=== PATIENT | male | born 1960 | race Caucasian/White ===

== ENCOUNTER 2017-01-20 19:32 | Inpatient (IN) | payer MEDICARE, OTHER ==
[~2017-01-20] VITALS: Ht 188 cm; Wt 57.2 kg
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
[2017-01-20] MEDS ORDERED: D5NS 1,000 ML IV SCH (19:45)
[2017-01-20 20:00] VITALS: BP 124/67
[2017-01-20] MEDS ORDERED: ZOFRAN4 M3 GT (20:07)
[2017-01-20] MEDS ORDERED: ACETAMINOPHEN325 M1 GT (20:07)
[2017-01-20] MEDS ORDERED: LORATADINE10 M2 GT (20:10)
[2017-01-20] MEDS ORDERED: MAGOX 400400 MG GT (20:10)
[2017-01-20] MEDS ORDERED: IPRATROPIU0.2 MG/1 M HHN (20:10)
[2017-01-20] MEDS ORDERED: ASCORBIC ACID500 MG GT (20:14)
[2017-01-20] MEDS ORDERED: VALPROIC ACID250 MG GT (20:14)
[2017-01-20] MEDS ORDERED: MULTIVITAMINS1 EAC2 GT (20:14)
[2017-01-20] MEDS ORDERED: QUETIAPINE FUM200 MG GT (20:16)
[2017-01-20] MEDS ORDERED: WELLBUTRIN XL150 MG GT (20:16)
[2017-01-20 20:18] LABS: BASOPHILS % (AUTO) 2.6 % (0.0-2.0); EOSINOPHILS % (AUTO) 0.4 % (0.0-3.0); LYMPHOCYTES % (AUTO) 24.7 % (20.0-45.0); MEAN CORPUSCULAR HEMOGLOBIN 33.2 PG (27.0-31.0); MEAN CORPUSCULAR HGB CONC 33.5 G/DL (32.0-36.0); MEAN CORPUSCULAR VOLUME 99 FL (80-99); MEAN PLATELET VOLUME 5.8 FL (6.5-10.1); MONOCYTES % (AUTO) 11.7 % (1.0-10.0); NEUTROPHILS % (AUTO) 60.6 % (45.0-75.0); PLATELET COUNT 449 K/UL (150-450); RED BLOOD COUNT 3.45 M/UL (4.70-6.10); RED CELL DISTRIBUTION WIDTH 12.3 % (11.6-14.8); WHITE BLOOD COUNT 6.7 K/UL (4.8-10.8)
[2017-01-20] MEDS ORDERED: DOCUSATE S50 MG/5 ML GT (21:00)
[2017-01-20] MEDS ORDERED: PRILOSEC2.5 MG GT (21:00)
[2017-01-20 21:11] LABS: ALANINE AMINOTRANSFERASE 14 U/L (3-41); ALBUMIN/GLOBULIN RATIO 0.7 (1.0-2.7); ANION GAP 14 (5-15); ASPARTATE AMINO TRANSFERASE 21 U/L (5-40); CALCIUM 9.8 mg/dL (8.6-10.2); CARBON DIOXIDE 27 mEQ/L (20-30); CHLORIDE 93 mEQ/L (98-107); CREATININE 0.7 mg/dL (0.7-1.2); GLOMERULAR FILTRATION RATE > 60 mL/min (>60); HEMOLYSIS 0; SODIUM 134 mEQ/L (135-145); TOTAL PROTEIN 8.7 g/dL (6.6-8.7)
[2017-01-20 21:21] LABS: CKMB 6.4 ng/mL (< 6.7)
[2017-01-20 21:30] VITALS: BP 117/83
[2017-01-20] MEDS ORDERED: Mylanta II UD 30ml ORAL PRN (22:45)
[2017-01-20] MEDS ORDERED: Miralax 17gm pkt ORAL PRN (22:45)
[2017-01-20] MEDS ORDERED: LORazepam Inj 2mg/ml 1ml IV PRN (22:45)
[2017-01-20] MEDS ORDERED: Zolpidem 5mg tab ORAL PRN (22:45)
[2017-01-20] MEDS ORDERED: Morphine Sulfate 2mg/ml Inj IVP PRN (22:45)
[2017-01-20] MEDS: D5NS 1,000 ML IV SCH (23:29)
[2017-01-21] VITALS: BP 109/70
[2017-01-21] MEDS ORDERED: Zolpidem 5mg tab GT PRN (03:00)
[2017-01-21] MEDS ORDERED: Miralax 17gm pkt GT PRN (03:00)
[2017-01-21 04:00] VITALS: BP 114/63
[2017-01-21] MEDS ORDERED: Mylanta II UD 30ml GT PRN (04:45)
[2017-01-21 08:00] VITALS: BP 96/54
[2017-01-21] MEDS: Valproic Acid 250mg/5ml Liquid GT SCH ×2 (08:08→20:53)
[2017-01-21] MEDS: BuPROPion XL 150mg tab ORAL SCH (08:08)
[2017-01-21] MEDS: Heparin 5000 units/ml inj SUBQ SCH ×2 (08:15→21:05)
[2017-01-21] MEDS ORDERED: BuPROPion XL 150mg tab ORAL SCH (09:00)
--- NOTE | 2017-01-21 09:08 | Diagnostic Imaging Report ---
Indication: SOB Technique: XRAY CHEST 1 V Comparison:None Findings: The heart is normal in size. There is patchy infiltrate in the right lower lung. Some linear density is also noted in the medial right lower lung. A nodular density is present over the left lung base. Pedicle screws and posterior fixation bars are present in the thoracic spine from T1-T8. The heart is normal in size. Impression: Evidence of previous surgery with hardware placement in the thoracic spine. Patchy right lower lobe infiltrate. The possibility of early pneumonia should be considered. Atelectasis or scarring in the medial right base. Nodular density over the left base. This likely represents a nipple shadow. However, repeat with nipple markers would be helpful.
[2017-01-21] MEDS: D5NS 1,000 ML IV SCH (11:12)
[2017-01-21] MEDS: Acetaminophen 650mg/20.3ml GT PRN (11:13)
[2017-01-21 11:42] VITALS: BP 105/72
[2017-01-21 11:57] LABS: BASOPHILS % (AUTO) 2.5 % (0.0-2.0); EOSINOPHILS % (AUTO) 3.1 % (0.0-3.0); LYMPHOCYTES % (AUTO) 40.5 % (20.0-45.0); MEAN CORPUSCULAR HEMOGLOBIN 34.1 PG (27.0-31.0); MEAN CORPUSCULAR HGB CONC 34.2 G/DL (32.0-36.0); MEAN CORPUSCULAR VOLUME 100 FL (80-99); MEAN PLATELET VOLUME 5.9 FL (6.5-10.1); NEUTROPHILS % (AUTO) 38.8 % (45.0-75.0); PLATELET COUNT 453 K/UL (150-450); RED BLOOD COUNT 3.44 M/UL (4.70-6.10); RED CELL DISTRIBUTION WIDTH 12.1 % (11.6-14.8); WHITE BLOOD COUNT 4.8 K/UL (4.8-10.8)
[2017-01-21 12:04] LABS: HEMOGLOBIN A1C 4.4 % (< 6.0)
[2017-01-21 12:07] LABS: ALANINE AMINOTRANSFERASE 15 U/L (3-41); ALBUMIN/GLOBULIN RATIO 0.6 (1.0-2.7); ASPARTATE AMINO TRANSFERASE 22 U/L (5-40); CALCIUM 9.9 mg/dL (8.6-10.2); CARBON DIOXIDE 30 mEQ/L (20-30); CHLORIDE 99 mEQ/L (98-107); CHOLESTEROL 146 mg/dL (< 200); CHOLESTEROL/HDL RATIO 3.7 (3.3-4.4); CREATININE 0.5 mg/dL (0.7-1.2); GLOMERULAR FILTRATION RATE > 60 mL/min (>60); HEMOLYSIS 0; LDL CHOLESTEROL (CALC.) 93 mg/dL (60-99); SODIUM 138 mEQ/L (135-145); TOTAL PROTEIN 8.6 g/dL (6.6-8.7)
[2017-01-21 12:12] LABS: ANION GAP 9 (5-15); POTASSIUM 6.1 mEQ/L (3.4-4.9)
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
[2017-01-21 15:35] VITALS: BP 105/68
[2017-01-21] MEDS ORDERED: DuoNeb 0.5-3(2.5)mg/3ml neb HHN PRN (15:45)
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
[2017-01-21] MEDS ORDERED: Bactrim DS (160mg/800mg) tab GT SCH (18:00)
[2017-01-21] MEDS ORDERED: Bactrim DS (160mg/800mg) tab ORAL SCH (18:00)
[2017-01-21] MEDS: Cefepime HCl 2 GM in D5W 110 ML IVPB SCH (18:40)
[2017-01-21] MEDS ORDERED: D5NS 1,000 ML IV SCH (19:45)
[2017-01-21 20:00] VITALS: BP 99/67
--- NOTE | 2017-01-21 20:45 | History and Physical Report ---
DATE OF ADMISSION: 01/20/2017 TIME OF EVALUATION: At 9 a.m. CONSULTANTS: 1. Gareth Martínez M.D. 2. Lety Barksdale M.D. 3. Ramon Madera M.D. 4. Merrick Tavares M.D. CHIEF COMPLAINT: Failure to thrive, weakness, and confusion. BRIEF HISTORY: This is a 56-year-old male from [facility], who presented with above-mentioned diagnoses. Currently confused in bed, refusing to answer questions. REVIEW OF SYSTEMS: Not available. PAST MEDICAL HISTORY: Include encephalopathy, weakness, and failure to thrive. PAST SURGICAL HISTORY: Unknown. MEDICATIONS: Include Seroquel, heparin, Depakene, Mylanta, Wellbutrin, Ambien, Tylenol, and morphine. ALLERGIES: Hydroxyzine. SOCIAL HISTORY: Unable to obtain secondary to the patient is non-cooperative. PHYSICAL EXAMINATION: GENERAL: Awake in bed, confused, not talking much. VITAL SIGNS: Temperature 97 degrees, pulse 81, respiration 20, and blood pressure 96/54. CARDIOVASCULAR: No murmur. LUNGS: Poor exchange. ABDOMEN: Bowel sounds positive. Nontender and nondistended. EXTREMITIES: No cyanosis, clubbing, or edema. NEUROLOGICAL: The patient moves all extremities. Does not follow commands. LABORATORY DATA: Laboratory shows hemoglobin 11.4, otherwise CBC is normal. BMP shows sodium 134, chloride 93, BUN 29, and glucose 70. ASSESSMENT: 1. Failure to thrive. 2. Confusion. 3. Encephalopathy. 4. Anemia. 5. Hyponatremia. PLAN: 1. Continue pre-medications. 2. OT, PT, and dietary evaluation. 3. CBC and BMP in the morning. 4. IV fluids. 5. Resume home medications. 6. Transfer to [facility] if cleared medically. 7. Dr. Martínez, Dr. Barksdale, Dr. Madera, Dr. Tavares, and Dr. Mac to consult. Jas Dooley D.O. DR: LAVONNE JOB#: [id number] CC:
[2017-01-21] MEDS: QUEtiapine 200mg tab GT SCH (20:54)
[2017-01-21] MEDS ORDERED: Bactrim Susp 20ml GT SCH (21:00)
[2017-01-22] VITALS: BP 106/50
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
[2017-01-22] MEDS: LORazepam Inj 2mg/ml 1ml IV PRN ×2 (03:11→11:25)
[2017-01-22 04:00] VITALS: BP 90/63
[2017-01-22] MEDS: Cefepime HCl 2 GM in D5W 110 ML IVPB SCH ×2 (05:43→17:24)
[2017-01-22 07:34] LABS: BASOPHILS % (AUTO) 2.3 % (0.0-2.0); EOSINOPHILS % (AUTO) 3.8 % (0.0-3.0); LYMPHOCYTES % (AUTO) 28.4 % (20.0-45.0); MEAN CORPUSCULAR HEMOGLOBIN 32.6 PG (27.0-31.0); MEAN CORPUSCULAR HGB CONC 33.1 G/DL (32.0-36.0); MEAN CORPUSCULAR VOLUME 99 FL (80-99); MEAN PLATELET VOLUME 5.6 FL (6.5-10.1); MONOCYTES % (AUTO) 14.2 % (1.0-10.0); NEUTROPHILS % (AUTO) 51.4 % (45.0-75.0); PLATELET COUNT 316 K/UL (150-450); RED BLOOD COUNT 3.02 M/UL (4.70-6.10); RED CELL DISTRIBUTION WIDTH 12.2 % (11.6-14.8); WHITE BLOOD COUNT 4.3 K/UL (4.8-10.8)
[2017-01-22 07:40] LABS: ANION GAP 11 (5-15); CALCIUM 8.6 mg/dL (8.6-10.2); CARBON DIOXIDE 27 mEQ/L (20-30); CHLORIDE 101 mEQ/L (98-107); CREATININE 0.5 mg/dL (0.7-1.2); GLOMERULAR FILTRATION RATE > 60 mL/min (>60); HEMOLYSIS 13; POTASSIUM 3.8 mEQ/L (3.4-4.9); SODIUM 139 mEQ/L (135-145)
[2017-01-22 08:00] VITALS: BP 95/60
--- NOTE | 2017-01-22 08:01 | General Progress Note ---
Assessment/Plan Problem List: (1) Psychiatric disorder ICD Codes: F99 - Mental disorder, not otherwise specified SNOMED: 05268985, 087646687 (2) Dysphagia ICD Codes: R13.10 - Dysphagia, unspecified SNOMED: 02018735, 156900935 (3) Dehydration ICD Codes: E86.0 - Dehydration SNOMED: 90298375 (4) Hyponatremia ICD Codes: E87.1 - Hypo-osmolality and hyponatremia SNOMED: 43495048 (5) FTT (failure to thrive) in adult ICD Codes: R62.7 - Adult failure to thrive SNOMED: 403537257 Status: progressing, tolerating diet Assessment/Plan ot pt diet psyc tx cbc bmp am psyc transfer Subjective Constitutional: Reports: weakness Allergies: Coded Allergies: HYDROXYZINE (Verified Allergy, Unknown, 01/20/17) All Systems: reviewed and negative except above Subjective confused anxious Objective Last 24 Hour Vital Signs Date Time Temp Pulse Resp B/P (MAP) Pulse Ox O2 Delivery O2 Flow Rate FiO2 01/22/17 04:00 97.1 95 22 90/63 95 Room Air 01/22/17 00:00 97.8 88 17 106/50 96 Room Air 01/21/17 20:00 97.9 87 18 99/67 97 Room Air 01/21/17 15:35 97.9 84 21 105/68 95 Room Air 01/21/17 11:42 97.5 88 20 105/72 95 Room Air Laboratory Tests 01/21/17 11:30: White Blood Count 4.8, Red Blood Count 3.44L, Hemoglobin 11.7L, Hematocrit 34.3L , Mean Corpuscular Volume 100H, Mean Corpuscular Hemoglobin 34.1H, Mean Corpuscular Hemoglobin Concent 34.2, Red Cell Distribution Width 12.1, Platelet Count 453H, Mean Platelet Volume 5.9L, Neutrophils (%) (Auto) 38.8L, Lymphocytes (%) (Auto) 40.5, Monocytes (%) (Auto) 15.0H, Eosinophils (%) (Auto) 3.1H, Basophils (%) (Auto) 2.5H, Sodium Level 138, Potassium Level 6.1#*H, Chloride Level 99, Carbon Dioxide Level 30, Anion Gap 9, Blood Urea Nitrogen 18 , Creatinine 0.5L, Estimat Glomerular Filtration Rate > 60, Glucose Level 111H, Hemoglobin A1c 4.4, Calcium Level 9.9, Total Bilirubin 0.5, Aspartate Amino Transf (AST/SGOT) 22, Alanine Aminotransferase (ALT/SGPT) 15, Alkaline Phosphatase 72, Total Protein 8.6, Albumin 3.5, Globulin 5.1, Albumin/Globulin Ratio 0.6L, Triglycerides Level 70, Cholesterol Level 146, LDL Cholesterol 93, HDL Cholesterol 39, Cholesterol/HDL Ratio 3.7, Thyroid Stimulating Hormone (TSH ) 2.870 01/21/17 13:10: Potassium Level 3.7 01/21/17 20:30: Rapid Plasma Reagin [Pending], HIV (1&2) Antibody Rapid Negative 01/22/17 06:00: White Blood Count 4.3L, Red Blood Count 3.02L, Hemoglobin 9.8L, Hematocrit 29.7L , Mean Corpuscular Volume 99, Mean Corpuscular Hemoglobin 32.6H, Mean Corpuscular Hemoglobin Concent 33.1, Red Cell Distribution Width 12.2, Platelet Count 316, Mean Platelet Volume 5.6L, Neutrophils (%) (Auto) 51.4, Lymphocytes ( %) (Auto) 28.4, Monocytes (%) (Auto) 14.2H, Eosinophils (%) (Auto) 3.8H, Basophils (%) (Auto) 2.3H, Sodium Level 139, Potassium Level 3.8, Chloride Level 101, Carbon Dioxide Level 27, Anion Gap 11, Blood Urea Nitrogen 13, Creatinine 0.5L, Estimat Glomerular Filtration Rate > 60, Glucose Level 84, Calcium Level 8.6, Phosphorus Level 3.2, Prealbumin [Pending] Height (Feet): 6 Height (Inches): 2.00 Weight (Pounds): 126 General Appearance: confused EENT: normal ENT inspection Neck: normal alignment Cardiovascular: normal peripheral pulses, normal rate, regular rhythm Respiratory/Chest: chest wall non-tender, lungs clear, normal breath sounds Abdomen: normal bowel sounds, non tender, soft Extremities: normal inspection Edema: no edema noted Arm (L), no edema noted Arm (R), no edema noted Leg (L), no edema noted Leg (R), no edema noted Pedal (L), no edema noted Pedal (R), no edema noted Generalized Neurologic: responsive, motor weakness Skin: normal pigmentation, warm/dry JOE RUIZ Jan 22, 2017 08:01
[2017-01-22] MEDS: Valproic Acid 250mg/5ml Liquid GT SCH ×2 (08:14→21:05)
[2017-01-22] MEDS: BuPROPion XL 150mg tab ORAL SCH (08:15)
[2017-01-22] MEDS: Heparin 5000 units/ml inj SUBQ SCH ×2 (08:16→21:16)
[2017-01-22] MEDS ORDERED: D5NS 1000ml IV ONE (09:09)
[2017-01-22] MEDS ORDERED: Tubing IV Secondary IV ONE (09:09)
[2017-01-22] MEDS ORDERED: Sterile Water Irrig 1000ml IRRIG ONE (09:11)
--- NOTE | 2017-01-22 11:08 | Pulmonology Progress Note ---
Assessment/Plan Assessment/Plan ASSESSMENT dehydration dysphagia, G tube anemia cachexia probably severe protein calorie malnutrition possible early PNA chronic encephalopathy PLAN OF CARE MS floor O2 prn titrate to keep sat above 92% HHN prn fup with CXR empiric abx, sputum cx if able IVF monitor renal parameters, lytes, avoid nephrotoxic strict aspiration precautions, GT feeding, monitor tolerance, site care swallow eval on Monday monitor HH, if trend down, then initiate anemia workup, currently mild dietary eval, check prealbumin DVT GI prophylaxis sitter at the bedside psych eval -as per PMD case discussed and evaluated by supervising physician Subjective Allergies: Coded Allergies: HYDROXYZINE (Verified Allergy, Unknown, 01/20/17) Subjective on RA no signs of respiratory distress, no congestion, no chest tightness no chest pain Objective Last 24 Hour Vital Signs Date Time Temp Pulse Resp B/P (MAP) Pulse Ox O2 Delivery O2 Flow Rate FiO2 01/22/17 08:00 97.5 92 20 95/60 97 Room Air 01/22/17 06:47 91 18 Room Air 01/22/17 04:00 97.1 95 22 90/63 95 Room Air 01/22/17 00:00 97.8 88 17 106/50 96 Room Air 01/21/17 20:00 97.9 87 18 99/67 97 Room Air 01/21/17 15:35 97.9 84 21 105/68 95 Room Air 01/21/17 11:42 97.5 88 20 105/72 95 Room Air Objective General Appearance: cachetic - awake, alert, anxious male in NAD , voice raspy Lines, tubes and drains: peripheral HEENT: anicteric Neck: supple Respiratory/Chest: lungs clear with moderate air entrance Cardiovascular/Chest: normal rate, regular rhythm, no JVD Abdomen: normal bowel sounds, non tender, soft Extremities: normal range of motion, non-tender, no calf tenderness Skin Exam: warm/dry, other multiple tattoos Neurologic: alert, responsive Laboratory Tests 01/21/17 11:30: White Blood Count 4.8, Red Blood Count 3.44L, Hemoglobin 11.7L, Hematocrit 34.3L , Mean Corpuscular Volume 100H, Mean Corpuscular Hemoglobin 34.1H, Mean Corpuscular Hemoglobin Concent 34.2, Red Cell Distribution Width 12.1, Platelet Count 453H, Mean Platelet Volume 5.9L, Neutrophils (%) (Auto) 38.8L, Lymphocytes (%) (Auto) 40.5, Monocytes (%) (Auto) 15.0H, Eosinophils (%) (Auto) 3.1H, Basophils (%) (Auto) 2.5H, Sodium Level 138, Potassium Level 6.1#*H, Chloride Level 99, Carbon Dioxide Level 30, Anion Gap 9, Blood Urea Nitrogen 18 , Creatinine 0.5L, Estimat Glomerular Filtration Rate > 60, Glucose Level 111H, Hemoglobin A1c 4.4, Calcium Level 9.9, Total Bilirubin 0.5, Aspartate Amino Transf (AST/SGOT) 22, Alanine Aminotransferase (ALT/SGPT) 15, Alkaline Phosphatase 72, Total Protein 8.6, Albumin 3.5, Globulin 5.1, Albumin/Globulin Ratio 0.6L, Triglycerides Level 70, Cholesterol Level 146, LDL Cholesterol 93, HDL Cholesterol 39, Cholesterol/HDL Ratio 3.7, Thyroid Stimulating Hormone (TSH ) 2.870 01/21/17 13:10: Potassium Level 3.7 01/21/17 20:30: Rapid Plasma Reagin [Pending], HIV (1&2) Antibody Rapid Negative 01/22/17 06:00: White Blood Count 4.3L, Red Blood Count 3.02L, Hemoglobin 9.8L, Hematocrit 29.7L , Mean Corpuscular Volume 99, Mean Corpuscular Hemoglobin 32.6H, Mean Corpuscular Hemoglobin Concent 33.1, Red Cell Distribution Width 12.2, Platelet Count 316, Mean Platelet Volume 5.6L, Neutrophils (%) (Auto) 51.4, Lymphocytes ( %) (Auto) 28.4, Monocytes (%) (Auto) 14.2H, Eosinophils (%) (Auto) 3.8H, Basophils (%) (Auto) 2.3H, Sodium Level 139, Potassium Level 3.8, Chloride Level 101, Carbon Dioxide Level 27, Anion Gap 11, Blood Urea Nitrogen 13, Creatinine 0.5L, Estimat Glomerular Filtration Rate > 60, Glucose Level 84, Calcium Level 8.6, Phosphorus Level 3.2, Prealbumin [Pending] Current Medications Medications (Trade) Dose Ordered Sig/Isabel Route PRN Reason Start Time Stop Time Status Last Admin Dose Admin Acetaminophen (Tylenol) 650 mg Q4H PRN GT Mild Pain/Temp > 100.5 01/21/17 03:00 02/20/17 02:59 01/21/17 11:13 Al Hydroxide/Mg Hydroxide (Mylanta II) 30 ml Q6H PRN GT dyspepsia 01/21/17 04:45 02/20/17 04:44 Albuterol/ Ipratropium (DuoNeb 0.5-3(2.5)mg/3ml) 3 ml Q4H PRN HHN shortness of breath 01/21/17 15:45 01/26/17 15:44 Bupropion HCl (Wellbutrin XL) 75 mg DAILY ORAL 01/21/17 09:00 02/20/17 08:59 01/22/17 08:15 Cefepime HCl 2 gm/ Dextrose 110 ml @ 220 mls/hr Q12HR@0600,1800 IVPB 01/21/17 18:30 01/28/17 18:29 01/22/17 05:43 Dextrose (Dextrose 50%) STAT PRN IV Hypoglycemia 01/20/17 22:45 02/19/17 22:44 Dextrose/Sodium Chloride 1,000 ml @ 50 mls/hr Q20H IV 01/20/17 23:30 02/19/17 23:29 01/21/17 11:12 Heparin Sodium (Porcine) (Heparin 5000 units/ml) 5,000 units EVERY 12 HOURS SUBQ 01/21/17 09:00 02/20/17 08:59 01/22/17 08:16 Lorazepam (Ativan 2mg/ml 1ml) 1 mg Q6H PRN IV For Anxiety 01/21/17 09:15 01/28/17 09:14 01/22/17 03:11 Olanzapine (ZyPREXA) 5 mg BID GT 01/21/17 18:00 02/20/17 17:59 01/22/17 08:14 Ondansetron HCl (Zofran) 4 mg Q6H PRN IVP Nausea & Vomiting 01/20/17 22:45 02/19/17 22:44 01/21/17 11:12 Polyethylene Glycol (Miralax) 17 gm HSPRN PRN GT Constipation 01/21/17 03:00 02/20/17 02:59 Quetiapine Fumarate (SEROquel) 200 mg BEDTIME GT 01/21/17 21:00 02/20/17 20:59 01/21/17 20:54 Ranitidine HCl (Zantac) 150 mg BEDTIME GT 01/21/17 21:00 02/20/17 20:59 01/21/17 20:54 Valproic Acid (Depakene) 250 mg EVERY 12 HOURS GT 01/21/17 09:00 02/20/17 08:59 01/22/17 08:14 Vancomycin HCl (Vanco rx to dose) 1 ea DAILY PRN MISC Per rx protocol 01/21/17 17:30 02/20/17 17:29 Vancomycin HCl 1 gm/Dextrose 250 ml @ 167.007 mls/hr Q8H IVPB 01/21/17 20:00 01/26/17 19:59 01/22/17 03:11 Zolpidem Tartrate (Ambien) 5 mg HSPRN PRN GT Insomnia 01/21/17 03:00 01/28/17 02:59 Anirudh (Andrea)Luisana NP Jan 22, 2017 11:08
--- NOTE | 2017-01-22 11:48 | Diagnostic Imaging Report ---
Indication: SOB Technique: XRAY CHEST 1 V Comparison:01/20/2017 Findings: Compared previous study there is slight increased infiltrate in the right lower lobe. The cardiomediastinal silhouette and remainder the chest is unchanged. Impression: Slight increased infiltrate in the right lower lobe. This is consistent with pneumonia.
[2017-01-22 12:00] VITALS: BP 142/66
[2017-01-22] MEDS ORDERED: guaiFENesin 100mg/5ml Liq ud GT PRN (12:00)
[2017-01-22] MEDS: D5NS 1,000 ML IV SCH (13:49)
--- NOTE | 2017-01-22 15:35 | Nephrology Progress Note ---
Assessment/Plan Problem List: (1) FTT (failure to thrive) in adult (2) Dehydration (3) PEG (percutaneous endoscopic gastrostomy) status (4) Psychiatric disorder (5) Dysphagia (6) Hyperkalemia Assessment: Resolved (7) Hyponatremia Assessment: resolved Plan Continue abx per ID Monitor lytes and correct prn Continue g-tube feeding per GI Pain management as needed DVT prophylaxis Fall precaution AM labs Subjective Constitutional: Denies: no symptoms, chills, diaphoresis, fever, malaise, weakness, other HEENT: Denies: no symptoms, eye pain, blurred vision, tearing, double vision, ear pain, ear discharge, nose pain, nose congestion, throat pain, throat swelling, mouth pain, mouth swelling, other Genitourinary: Denies: no symptoms, burning, discharge, frequency, flank pain, hematuria, incontinence, pain, urgency, other Neurologic/Psychiatric: Denies: no symptoms, anxiety, depressed, emotional problems, headache, numbness, paresthesia, pre-existing deficit, seizure, tingling, tremors, weakness, other Subjective Sitting by the bedside, in no apparent distress. Objective Objective Last 24 Hour Vital Signs Date Time Temp Pulse Resp B/P (MAP) Pulse Ox O2 Delivery O2 Flow Rate FiO2 01/22/17 12:00 97.3 93 20 142/66 96 Room Air 01/22/17 08:00 97.5 92 20 95/60 97 Room Air 01/22/17 06:47 91 18 Room Air 01/22/17 04:00 97.1 95 22 90/63 95 Room Air 01/22/17 00:00 97.8 88 17 106/50 96 Room Air 01/21/17 20:00 97.9 87 18 99/67 97 Room Air 01/21/17 15:35 97.9 84 21 105/68 95 Room Air Laboratory Tests 01/21/17 20:30: Rapid Plasma Reagin [Pending], HIV (1&2) Antibody Rapid Negative 01/22/17 06:00: White Blood Count 4.3L, Red Blood Count 3.02L, Hemoglobin 9.8L, Hematocrit 29.7L , Mean Corpuscular Volume 99, Mean Corpuscular Hemoglobin 32.6H, Mean Corpuscular Hemoglobin Concent 33.1, Red Cell Distribution Width 12.2, Platelet Count 316, Mean Platelet Volume 5.6L, Neutrophils (%) (Auto) 51.4, Lymphocytes ( %) (Auto) 28.4, Monocytes (%) (Auto) 14.2H, Eosinophils (%) (Auto) 3.8H, Basophils (%) (Auto) 2.3H, Sodium Level 139, Potassium Level 3.8, Chloride Level 101, Carbon Dioxide Level 27, Anion Gap 11, Blood Urea Nitrogen 13, Creatinine 0.5L, Estimat Glomerular Filtration Rate > 60, Glucose Level 84, Calcium Level 8.6, Phosphorus Level 3.2, Prealbumin [Pending] Height (Feet): 6 Height (Inches): 2.00 Weight (Pounds): 126 General Appearance: no apparent distress EENT: PERRL/EOMI, normal ENT inspection Neck: non-tender, normal alignment Cardiovascular: normal rate, regular rhythm Respiratory/Chest: normal breath sounds, no respiratory distress Abdomen: soft, other - PEG Extremities: non-tender, normal inspection Neurologic: alert, responsive, normal mood/affect Denisse Lam N.P. Jan 22, 2017 15:35
[2017-01-22 16:00] VITALS: BP 101/76
[2017-01-22 20:00] VITALS: BP 117/55
[2017-01-22] MEDS: DuoNeb 0.5-3(2.5)mg/3ml neb HHN PRN (20:14)
[2017-01-22] MEDS: QUEtiapine 200mg tab GT SCH (21:05)
[2017-01-22] MEDS: Acetaminophen 650mg/20.3ml GT PRN (21:18)
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
[2017-01-23] VITALS: BP 114/57
[2017-01-23 04:00] VITALS: BP 108/53
[2017-01-23] MEDS: Cefepime HCl 2 GM in D5W 110 ML IVPB SCH ×2 (05:00→18:21)
[2017-01-23 07:33] LABS: MEAN CORPUSCULAR HEMOGLOBIN 34.2 PG (27.0-31.0); MEAN CORPUSCULAR HGB CONC 34.5 G/DL (32.0-36.0); MEAN CORPUSCULAR VOLUME 99 FL (80-99); MEAN PLATELET VOLUME 5.8 FL (6.5-10.1); PLATELET COUNT 280 K/UL (150-450); RED BLOOD COUNT 2.61 M/UL (4.70-6.10); RED CELL DISTRIBUTION WIDTH 12.6 % (11.6-14.8); WHITE BLOOD COUNT 2.4 K/UL (4.8-10.8)
[2017-01-23 07:52] LABS: ANION GAP 5 (5-15); CALCIUM 8.3 mg/dL (8.6-10.2); CARBON DIOXIDE 31 mEQ/L (20-30); CHLORIDE 101 mEQ/L (98-107); CREATININE 0.4 mg/dL (0.7-1.2); GLOMERULAR FILTRATION RATE > 60 mL/min (>60); HEMOLYSIS 2; POTASSIUM 3.7 mEQ/L (3.4-4.9); SODIUM 137 mEQ/L (135-145)
[2017-01-23 08:12] VITALS: BP 98/62
--- NOTE | 2017-01-23 08:15 | Progress Note ---
DATE: 01/23/2017 SUBJECTIVE: This is a 56-year-old patient with failure to thrive, but he had some altered mental status and agitation. PLAN: to prevent any decline in his cognition and agitation. The patient was seen and assessed at the bedside. Chart was reviewed and discussed with the staff. Lety Barksdale M.D. DR: HAFSA JOB#: [id number] CC:
--- NOTE | 2017-01-23 08:15 | Consultation ---
DATE OF CONSULTATION: 01/21/2017 HISTORY OF PRESENT ILLNESS: This is a 56-year-old male patient who was admitted with diagnosis of failure to thrive and dehydration with altered mental status and confusion over at [facility] and confusion, but he also has underlying diagnosis of paranoid schizophrenia with acute exacerbation and he has been having some agitation. He has been in his room and that is why there was a consultation requested for this patient. ALLERGIES: Hydroxyzine. SOCIAL HISTORY: Financially supported by [employer] and Medicare, lives in [facility]. PSYCHOTROPIC MEDICATIONS: The patient is on Wellbutrin XL 75 mg daily and he is also on Seroquel at a dose of 200 mg at bedtime as well as Depakote 250 mg per G-tube twice a day. Even being on those medications, he still has some agitation and irritability. PSYCHIATRIC HISTORY: Schizoaffective, bipolar type, he does previous admissions. PAST MEDICAL HISTORY: This patient does have a history of failure to thrive with dehydration, status post G-tube. MENTAL STATUS EXAMINATION: This is a 56-year-old male with psychomotor retardation. Mood is irritable and agitated. Affect is guarded and restricted. Thought process is disorganized and illogical. He denies any suicidal or homicidal thoughts. Insight and judgment is poor. DIAGNOSIS: Schizoaffective, bipolar type. PLAN: My plan for this patient is I am going to add 5 mg through G-tube twice a day to reduce agitation and anxiety. Continue Seroquel 200 mg at bedtime and Depakote 250 mg per G-tube twice a day to stabilize his mood and reduce anxiety . Chart was reviewed and discussed with the staff. Patient was seen and assessed at bedside. I would like to thank Dr. Jas Dooley for this interesting consultation. Lety Barksdale M.D. DR: Abhijit JOB#: [id number] CC:
[2017-01-23 08:42] LABS: EOSINOPHILS % (MANUAL) 10 % (0-3); LYMPHOCYTES % (MANUAL) 47 % (20-45); NEUTROPHILS % (MANUAL) 28 % (45-75); TOTAL CELLS COUNTED 100
[2017-01-23 08:43] LABS: ANISOCYTOSIS 1+; BAND NEUTROPHILS % (MANUAL) 0 % (0-8); BASOPHILS % (MANUAL) 0 % (0-2); MACROCYTES 1+; PLATELET ESTIMATE ADEQUATE; PLATELET MORPHOLOGY NORMAL
[2017-01-23 08:44] LABS: HYPOCHROMASIA 1+; OVALOCYTES 1+
[2017-01-23] MEDS: BuPROPion XL 150mg tab ORAL SCH (09:20)
[2017-01-23] MEDS: Heparin 5000 units/ml inj SUBQ SCH ×2 (09:21→20:53)
[2017-01-23] MEDS: Valproic Acid 250mg/5ml Liquid GT SCH ×2 (09:21→20:52)
[2017-01-23] MEDS: DuoNeb 0.5-3(2.5)mg/3ml neb HHN PRN ×2 (10:14→15:24)
[2017-01-23 12:03] VITALS: BP 108/64
[2017-01-23] MEDS: D5NS 1,000 ML IV SCH (12:18)
[2017-01-23] MEDS: LORazepam Inj 2mg/ml 1ml IV PRN (12:30)
--- NOTE | 2017-01-23 13:33 | General Progress Note ---
Assessment/Plan Problem List: (1) Psychiatric disorder ICD Codes: F99 - Mental disorder, not otherwise specified SNOMED: 77361616, 492338202 (2) Dysphagia ICD Codes: R13.10 - Dysphagia, unspecified SNOMED: 97515779, 499984373 (3) Dehydration ICD Codes: E86.0 - Dehydration SNOMED: 49960374 (4) Hyponatremia ICD Codes: E87.1 - Hypo-osmolality and hyponatremia SNOMED: 91106048 (5) FTT (failure to thrive) in adult ICD Codes: R62.7 - Adult failure to thrive SNOMED: 735241662 Status: stable, progressing, tolerating diet Assessment/Plan ot pt diet psyc tx cbc bmp am dc to snf Subjective Constitutional: Reports: weakness Allergies: Coded Allergies: HYDROXYZINE (Verified Allergy, Unknown, 01/20/17) All Systems: reviewed and negative except above Subjective confused anxious Objective Last 24 Hour Vital Signs Date Time Temp Pulse Resp B/P (MAP) Pulse Ox O2 Delivery O2 Flow Rate FiO2 01/23/17 12:03 97.0 89 20 108/64 95 Room Air 01/23/17 10:16 88 18 99 Room Air 01/23/17 10:16 90 18 99 Room Air 01/23/17 08:12 97.7 97 18 98/62 95 Room Air 01/23/17 07:40 88 18 Room Air 01/23/17 04:00 97.2 81 18 108/53 97 Room Air 01/23/17 00:00 97.1 81 18 114/57 97 Room Air 01/22/17 22:00 96.4 01/22/17 20:25 86 18 99 Room Air 01/22/17 20:15 83 18 99 Room Air 01/22/17 20:00 96.4 79 18 117/55 99 Room Air 01/22/17 19:44 89 18 Room Air 01/22/17 16:00 98.9 90 15 101/76 98 Room Air Intake and Output 01/23/17 01/24/17 19:00 07:00 Output Total 300 ml Balance -300 ml Output Urine Total 300 ml # Voids 2 # Bowel Movements 2 Laboratory Tests 01/22/17 19:30: Vancomycin Level Trough 20.0H 01/23/17 06:25: White Blood Count 2.4L, Red Blood Count 2.61L, Hemoglobin 8.9L, Hematocrit 25.9L , Mean Corpuscular Volume 99, Mean Corpuscular Hemoglobin 34.2H, Mean Corpuscular Hemoglobin Concent 34.5, Red Cell Distribution Width 12.6, Platelet Count 280, Mean Platelet Volume 5.8L, Neutrophils (%) (Auto) , Lymphocytes (%) ( Auto) , Monocytes (%) (Auto) , Eosinophils (%) (Auto) , Basophils (%) (Auto) , Differential Total Cells Counted 100, Neutrophils % (Manual) 28L, Lymphocytes % (Manual) 47H, Monocytes % (Manual) 15H, Eosinophils % (Manual) 10H, Basophils % (Manual) 0, Band Neutrophils 0, Platelet Estimate Adequate, Platelet Morphology Normal, Hypochromasia 1+, Anisocytosis 1+, Microcytosis , Macrocytosis 1+, Ovalocytes 1+, Sodium Level 137, Potassium Level 3.7, Chloride Level 101, Carbon Dioxide Level 31H, Anion Gap 5, Blood Urea Nitrogen 9, Creatinine 0.4L, Estimat Glomerular Filtration Rate > 60, Glucose Level 132H, Calcium Level 8.3L Height (Feet): 6 Height (Inches): 2.00 Weight (Pounds): 126 General Appearance: lethargic EENT: normal ENT inspection Neck: normal alignment Cardiovascular: normal peripheral pulses, normal rate, regular rhythm Respiratory/Chest: chest wall non-tender, lungs clear, normal breath sounds Abdomen: normal bowel sounds, non tender, soft Extremities: normal inspection Edema: no edema noted Arm (L), no edema noted Arm (R), no edema noted Leg (L), no edema noted Leg (R), no edema noted Pedal (L), no edema noted Pedal (R), no edema noted Generalized Neurologic: motor weakness Skin: normal pigmentation, warm/dry JOE RUIZ Jan 23, 2017 13:33
--- NOTE | 2017-01-23 14:30 | Wound Care Consultation ---
Wound Assessment Wound Assessment #1: Wound Number: 1 Wound Present on Admission: Yes New Wound: No Status Change of Wound: No Wound Location Body Site: perineal area Wound Type: chemical burn Cole Test: Does not Cole Percent of Wound [place]/Red: 100 - scattered Wound Drainage Amount: None Wound Drainage Odor: None/Absent Tissue Surrounding Wound: Erythemic Wound General Appearance: Reddened, Open to air Wound Assessment #2: Wound Number: 2 Wound Present on Admission: Yes New Wound: No Status Change of Wound: No Wound Location Body Site: other - gtube site Wound Type: chemical burn - with erosion Cole Test: Does not Cole Wound Thickness: Partial Thickness Percent of Wound [place]/Red: 100 - pink color Wound Drainage Amount: Moderate Tissue Surrounding Wound: Erythemic - keep area clean and dry. Wound General Appearance: Reddened Wound Comment #1 perineal area chemical burn. #2 gtube site chemical burn . #3 right lower abd s/p surgical incision , noted site intact, one steri strip intact ,- follow up with MD regarding surgical incision treatment. keep area clean and dry. Recommendation. -local wound care as ordered. -Keep clean and dry. -Keep perineal , gtube site clean and dry. -Turn and reposition. -Optimize nutrition. -Assess and notify MD for any changes of condition to skin. ANDRÉS TAYLOR Jan 23, 2017 14:30
--- NOTE | 2017-01-23 14:37 | Pulmonology Progress Note ---
Assessment/Plan Problems: (1) Dehydration (2) PEG (percutaneous endoscopic gastrostomy) status (3) FTT (failure to thrive) in adult (4) Dysphagia Assessment/Plan tolerating feeding check electrolytes symptomatic treatment IV fluids check electrolytes. Subjective ROS Limited/Unobtainable: No Constitutional: Reports: no symptoms HEENT: Repors: no symptoms Respiratory: Reports: no symptoms Allergies: Coded Allergies: HYDROXYZINE (Verified Allergy, Unknown, 01/20/17) Objective Last 24 Hour Vital Signs Date Time Temp Pulse Resp B/P (MAP) Pulse Ox O2 Delivery O2 Flow Rate FiO2 01/23/17 12:03 97.0 89 20 108/64 95 Room Air 01/23/17 10:16 88 18 99 Room Air 01/23/17 10:16 90 18 99 Room Air 01/23/17 08:12 97.7 97 18 98/62 95 Room Air 01/23/17 07:40 88 18 Room Air 01/23/17 04:00 97.2 81 18 108/53 97 Room Air 01/23/17 00:00 97.1 81 18 114/57 97 Room Air 01/22/17 22:00 96.4 01/22/17 20:25 86 18 99 Room Air 01/22/17 20:15 83 18 99 Room Air 01/22/17 20:00 96.4 79 18 117/55 99 Room Air 01/22/17 19:44 89 18 Room Air 01/22/17 16:00 98.9 90 15 101/76 98 Room Air Intake and Output 01/23/17 01/24/17 19:00 07:00 Output Total 300 ml Balance -300 ml Output Urine Total 300 ml # Voids 2 # Bowel Movements 2 General Appearance: WD/WN HEENT: normocephalic, atraumatic Respiratory/Chest: chest wall non-tender, lungs clear Cardiovascular: normal peripheral pulses, regular rhythm Abdomen: normal bowel sounds, soft, non tender Genitourinary: normal external genitalia Extremities: no cyanosis Skin: no rash, no lesions Microbiology Date/Time Source Procedure Growth Status 01/21/17 20:40 Blood Blood Culture - Preliminary NO GROWTH AFTER 24 HOURS Resulted 01/21/17 20:30 Blood Blood Culture - Preliminary NO GROWTH AFTER 24 HOURS Resulted 01/21/17 16:40 Sputum Expectorated Gram Stain - Final Resulted 01/21/17 16:40 Sputum Expectorated Sputum Culture - Preliminary Resulted 01/20/17 21:45 Nasal Nares MRSA Culture - Final NO METHICILLIN RESISTANT STAPH AUREUS... Complete 01/20/17 21:45 Rectum VRE Culture - Final Enterococcus Faecalis - Vre Complete Laboratory Tests 01/22/17 19:30: Vancomycin Level Trough 20.0H 01/23/17 06:25: White Blood Count 2.4L, Red Blood Count 2.61L, Hemoglobin 8.9L, Hematocrit 25.9L , Mean Corpuscular Volume 99, Mean Corpuscular Hemoglobin 34.2H, Mean Corpuscular Hemoglobin Concent 34.5, Red Cell Distribution Width 12.6, Platelet Count 280, Mean Platelet Volume 5.8L, Neutrophils (%) (Auto) , Lymphocytes (%) ( Auto) , Monocytes (%) (Auto) , Eosinophils (%) (Auto) , Basophils (%) (Auto) , Differential Total Cells Counted 100, Neutrophils % (Manual) 28L, Lymphocytes % (Manual) 47H, Monocytes % (Manual) 15H, Eosinophils % (Manual) 10H, Basophils % (Manual) 0, Band Neutrophils 0, Platelet Estimate Adequate, Platelet Morphology Normal, Hypochromasia 1+, Anisocytosis 1+, Microcytosis , Macrocytosis 1+, Ovalocytes 1+, Sodium Level 137, Potassium Level 3.7, Chloride Level 101, Carbon Dioxide Level 31H, Anion Gap 5, Blood Urea Nitrogen 9, Creatinine 0.4L, Estimat Glomerular Filtration Rate > 60, Glucose Level 132H, Calcium Level 8.3L Current Medications Medications (Trade) Dose Ordered Sig/Isabel Route PRN Reason Start Time Stop Time Status Last Admin Dose Admin Acetaminophen (Tylenol) 650 mg Q4H PRN GT Mild Pain/Temp > 100.5 01/21/17 03:00 02/20/17 02:59 01/22/17 21:18 Al Hydroxide/Mg Hydroxide (Mylanta II) 30 ml Q6H PRN GT dyspepsia 01/21/17 04:45 02/20/17 04:44 Albuterol/ Ipratropium (DuoNeb 0.5-3(2.5)mg/3ml) 3 ml Q4H PRN HHN Shortness of Breath 01/22/17 12:00 01/27/17 11:59 01/23/17 10:14 Bupropion HCl (Wellbutrin XL) 75 mg DAILY ORAL 01/21/17 09:00 02/20/17 08:59 01/23/17 09:20 Cefepime HCl 2 gm/ Dextrose 110 ml @ 220 mls/hr Q12HR@0600,1800 IVPB 01/21/17 18:30 01/28/17 18:29 01/23/17 05:00 Dextrose (Dextrose 50%) STAT PRN IV Hypoglycemia 01/20/17 22:45 02/19/17 22:44 Dextrose/Sodium Chloride 1,000 ml @ 50 mls/hr Q20H IV 01/20/17 23:30 02/19/17 23:29 01/23/17 12:18 Guaifenesin (Robitussin) 100 mg Q4H PRN GT For Cough 01/22/17 12:00 02/21/17 11:59 01/22/17 12:10 Heparin Sodium (Porcine) (Heparin 5000 units/ml) 5,000 units EVERY 12 HOURS SUBQ 01/21/17 09:00 02/20/17 08:59 01/23/17 09:21 Lorazepam (Ativan 2mg/ml 1ml) 1 mg Q6H PRN IV For Anxiety 01/21/17 09:15 01/28/17 09:14 01/23/17 12:30 Olanzapine (ZyPREXA) 5 mg BID GT 01/21/17 18:00 02/20/17 17:59 01/23/17 09:20 Ondansetron HCl (Zofran) 4 mg Q6H PRN IVP Nausea & Vomiting 01/20/17 22:45 02/19/17 22:44 01/21/17 11:12 Polyethylene Glycol (Miralax) 17 gm HSPRN PRN GT Constipation 01/21/17 03:00 02/20/17 02:59 Quetiapine Fumarate (SEROquel) 200 mg BEDTIME GT 01/21/17 21:00 02/20/17 20:59 01/22/17 21:05 Ranitidine HCl (Zantac) 150 mg BEDTIME GT 01/21/17 21:00 02/20/17 20:59 01/22/17 21:05 Valproic Acid (Depakene) 250 mg EVERY 12 HOURS GT 01/21/17 09:00 02/20/17 08:59 01/23/17 09:21 Vancomycin HCl (Vanco rx to dose) 1 ea DAILY PRN MISC Per rx protocol 01/21/17 17:30 02/20/17 17:29 Vancomycin HCl 1 gm/Dextrose 250 ml @ 167.007 mls/hr Q12HR@0200,1400 IVPB 01/23/17 02:00 01/28/17 01:59 01/23/17 14:22 Zolpidem Tartrate (Ambien) 5 mg HSPRN PRN GT Insomnia 01/21/17 03:00 01/28/17 02:59 RENÉ KAMINSKI Jan 23, 2017 14:37
[2017-01-23 16:00] VITALS: BP 104/79
--- NOTE | 2017-01-23 17:36 | Infectious Diseases Prog Note ---
Assessment/Plan Problems: (1) RLL pneumonia Assessment & Plan: await blood culture and sputum culture, continue cefepime and vancomycin empirically for 7 days (2) G-tube site cellulitis Assessment & Plan: already on vancomycin and cefepime, continue local care (3) Respiratory failure after trauma Assessment & Plan: S/P trach removal, stable, monitor CXR, pulmonary is following (4) Dehydration Assessment & Plan: continue IVF for hydration, monitor lytes (5) FTT (failure to thrive) in adult Assessment & Plan: screening for HIV is negative , screening for syphilis is pending, need TSH checked Subjective Constitutional: Reports: no symptoms HEENT: Reports: no symptoms Respiratory: Reports: no symptoms Breasts: Reports: no symptoms Cardiovascular: Reports: no symptoms Gastrointestinal/Abdominal: Reports: no symptoms Genitourinary: Reports: no symptoms Neurologic: Reports: no symptoms Psychiatric: Reports: no symptoms Skin: Reports: no symptoms Endocrine: Reports: no symptoms Hematologic: Reports: no symptoms Allergies: Coded Allergies: HYDROXYZINE (Verified Allergy, Unknown, 01/20/17) Objective Vital Signs Last 24 Hour Vital Signs Date Time Temp Pulse Resp B/P (MAP) Pulse Ox O2 Delivery O2 Flow Rate FiO2 01/23/17 16:00 98.3 92 21 104/79 97 Room Air 01/23/17 15:26 79 18 99 Room Air 01/23/17 15:26 85 18 99 Room Air 01/23/17 12:03 97.0 89 20 108/64 95 Room Air 01/23/17 10:16 88 18 99 Room Air 01/23/17 10:16 90 18 99 Room Air 01/23/17 08:12 97.7 97 18 98/62 95 Room Air 01/23/17 07:40 88 18 Room Air 01/23/17 04:00 97.2 81 18 108/53 97 Room Air 01/23/17 00:00 97.1 81 18 114/57 97 Room Air 01/22/17 22:00 96.4 01/22/17 20:25 86 18 99 Room Air 01/22/17 20:15 83 18 99 Room Air 01/22/17 20:00 96.4 79 18 117/55 99 Room Air 01/22/17 19:44 89 18 Room Air Height (Feet): 6 Height (Inches): 2.00 Weight (Pounds): 126 General Appearance: WD/WN, no acute distress HEENT: normocephalic, atraumatic, anicteric, mucous membranes moist, PERRL, EOMI, pharynx normal, supple Respiratory/Chest: chest wall non-tender, normal breath sounds, no respiratory distress, no accessory muscle use, decreased breath sounds, crackles/rales Cardiovascular: normal peripheral pulses, normal rate, regular rhythm, no gallop/murmur, no JVD Abdomen: normal bowel sounds, soft, non tender, no organomegaly, non distended , no mass Extremities: no cyanosis, no clubbing Skin: no rash, no lesions Neurologic/Psychiatric: alert, responsive Microbiology Date/Time Source Procedure Growth Status 01/21/17 20:40 Blood Blood Culture - Preliminary NO GROWTH AFTER 24 HOURS Resulted 01/21/17 20:30 Blood Blood Culture - Preliminary NO GROWTH AFTER 24 HOURS Resulted 01/21/17 16:40 Sputum Expectorated Gram Stain - Final Resulted 01/21/17 16:40 Sputum Expectorated Sputum Culture - Preliminary Resulted 01/20/17 21:45 Nasal Nares MRSA Culture - Final NO METHICILLIN RESISTANT STAPH AUREUS... Complete 01/20/17 21:45 Rectum VRE Culture - Final Enterococcus Faecalis - Vre Complete Laboratory Tests Test 01/22/17 19:30 01/23/17 06:25 Vancomycin Level Trough 20.0 ug/mL (5.0-12.0) H White Blood Count 2.4 K/UL (4.8-10.8) L Red Blood Count 2.61 M/UL (4.70-6.10) L Hemoglobin 8.9 G/DL (14.2-18.0) L Hematocrit 25.9 % (42.0-52.0) L Mean Corpuscular Volume 99 FL (80-99) Mean Corpuscular Hemoglobin 34.2 PG (27.0-31.0) H Mean Corpuscular Hemoglobin Concent 34.5 G/DL (32.0-36.0) Red Cell Distribution Width 12.6 % (11.6-14.8) Platelet Count 280 K/UL (150-450) Mean Platelet Volume 5.8 FL (6.5-10.1) L Neutrophils (%) (Auto) % (45.0-75.0) Lymphocytes (%) (Auto) % (20.0-45.0) Monocytes (%) (Auto) % (1.0-10.0) Eosinophils (%) (Auto) % (0.0-3.0) Basophils (%) (Auto) % (0.0-2.0) Differential Total Cells Counted 100 Neutrophils % (Manual) 28 % (45-75) L Lymphocytes % (Manual) 47 % (20-45) H Monocytes % (Manual) 15 % (1-10) H Eosinophils % (Manual) 10 % (0-3) H Basophils % (Manual) 0 % (0-2) Band Neutrophils 0 % (0-8) Platelet Estimate Adequate Platelet Morphology Normal Hypochromasia 1+ Anisocytosis 1+ Microcytosis Macrocytosis 1+ Ovalocytes 1+ Sodium Level 137 mEQ/L (135-145) Potassium Level 3.7 mEQ/L (3.4-4.9) Chloride Level 101 mEQ/L (98-107) Carbon Dioxide Level 31 mEQ/L (20-30) H Anion Gap 5 (5-15) Blood Urea Nitrogen 9 mg/dL (7-23) Creatinine 0.4 mg/dL (0.7-1.2) L Estimat Glomerular Filtration Rate > 60 mL/min (>60) Glucose Level 132 mg/dL (74-106) H Calcium Level 8.3 mg/dL (8.6-10.2) L Current Medications Medications (Trade) Dose Ordered Sig/Isabel Route PRN Reason Start Time Stop Time Status Last Admin Dose Admin Acetaminophen (Tylenol) 650 mg Q4H PRN GT Mild Pain/Temp > 100.5 01/21/17 03:00 02/20/17 02:59 01/22/17 21:18 Al Hydroxide/Mg Hydroxide (Mylanta II) 30 ml Q6H PRN GT dyspepsia 01/21/17 04:45 02/20/17 04:44 Albuterol/ Ipratropium (DuoNeb 0.5-3(2.5)mg/3ml) 3 ml Q4H PRN HHN Shortness of Breath 01/22/17 12:00 01/27/17 11:59 01/23/17 15:24 Bupropion HCl (Wellbutrin XL) 75 mg DAILY ORAL 01/21/17 09:00 02/20/17 08:59 01/23/17 09:20 Cefepime HCl 2 gm/ Dextrose 110 ml @ 220 mls/hr Q12HR@0600,1800 IVPB 01/21/17 18:30 01/28/17 18:29 01/23/17 05:00 Dextrose (Dextrose 50%) STAT PRN IV Hypoglycemia 01/20/17 22:45 02/19/17 22:44 Dextrose/Sodium Chloride 1,000 ml @ 50 mls/hr Q20H IV 01/20/17 23:30 02/19/17 23:29 01/23/17 12:18 Guaifenesin (Robitussin) 100 mg Q4H PRN GT For Cough 01/22/17 12:00 02/21/17 11:59 01/22/17 12:10 Heparin Sodium (Porcine) (Heparin 5000 units/ml) 5,000 units EVERY 12 HOURS SUBQ 01/21/17 09:00 02/20/17 08:59 01/23/17 09:21 Lorazepam (Ativan 2mg/ml 1ml) 1 mg Q6H PRN IV For Anxiety 01/21/17 09:15 01/28/17 09:14 01/23/17 12:30 Olanzapine (ZyPREXA) 5 mg BID GT 01/21/17 18:00 02/20/17 17:59 01/23/17 09:20 Ondansetron HCl (Zofran) 4 mg Q6H PRN IVP Nausea & Vomiting 01/20/17 22:45 02/19/17 22:44 01/21/17 11:12 Polyethylene Glycol (Miralax) 17 gm HSPRN PRN GT Constipation 01/21/17 03:00 02/20/17 02:59 Quetiapine Fumarate (SEROquel) 200 mg BEDTIME GT 01/21/17 21:00 02/20/17 20:59 01/22/17 21:05 Ranitidine HCl (Zantac) 150 mg BEDTIME GT 01/21/17 21:00 02/20/17 20:59 01/22/17 21:05 Valproic Acid (Depakene) 250 mg EVERY 12 HOURS GT 01/21/17 09:00 02/20/17 08:59 01/23/17 09:21 Vancomycin HCl (Vanco rx to dose) 1 ea DAILY PRN MISC Per rx protocol 01/21/17 17:30 02/20/17 17:29 Vancomycin HCl 1 gm/Dextrose 250 ml @ 167.007 mls/hr Q12HR@0200,1400 IVPB 01/23/17 02:00 01/28/17 01:59 01/23/17 14:22 Zolpidem Tartrate (Ambien) 5 mg HSPRN PRN GT Insomnia 01/21/17 03:00 01/28/17 02:59 Sehree Barrios M.D. Jan 23, 2017 17:35
--- NOTE | 2017-01-23 18:17 | Nephrology Progress Note ---
Assessment/Plan Problem List: (1) FTT (failure to thrive) in adult (2) Dehydration (3) PEG (percutaneous endoscopic gastrostomy) status (4) Psychiatric disorder (5) Dysphagia (6) Hyperkalemia Assessment: Resolved (7) Hyponatremia Assessment: resolved Plan Continue abx per ID Monitor lytes and correct prn Continue g-tube feeding per GI Pain management as needed DVT prophylaxis Fall precaution AM labs Subjective Constitutional: Denies: no symptoms, chills, diaphoresis, fever, malaise, weakness, other HEENT: Denies: no symptoms, eye pain, blurred vision, tearing, double vision, ear pain, ear discharge, nose pain, nose congestion, throat pain, throat swelling, mouth pain, mouth swelling, other Genitourinary: Denies: no symptoms, burning, discharge, frequency, flank pain, hematuria, incontinence, pain, urgency, other Neurologic/Psychiatric: Denies: no symptoms, anxiety, depressed, emotional problems, headache, numbness, paresthesia, pre-existing deficit, seizure, tingling, tremors, weakness, other Subjective Sitting by the bedside, pt is in no apparent distress. Objective Objective Last 24 Hour Vital Signs Date Time Temp Pulse Resp B/P (MAP) Pulse Ox O2 Delivery O2 Flow Rate FiO2 01/23/17 16:00 98.3 92 21 104/79 97 Room Air 01/23/17 15:26 79 18 99 Room Air 01/23/17 15:26 85 18 99 Room Air 01/23/17 12:03 97.0 89 20 108/64 95 Room Air 01/23/17 10:16 88 18 99 Room Air 01/23/17 10:16 90 18 99 Room Air 01/23/17 08:12 97.7 97 18 98/62 95 Room Air 01/23/17 07:40 88 18 Room Air 01/23/17 04:00 97.2 81 18 108/53 97 Room Air 01/23/17 00:00 97.1 81 18 114/57 97 Room Air 01/22/17 22:00 96.4 01/22/17 20:25 86 18 99 Room Air 01/22/17 20:15 83 18 99 Room Air 01/22/17 20:00 96.4 79 18 117/55 99 Room Air 01/22/17 19:44 89 18 Room Air Intake and Output 01/23/17 01/24/17 19:00 07:00 Output Total 300 ml Balance -300 ml Output Urine Total 300 ml # Voids 2 # Bowel Movements 2 Laboratory Tests 01/22/17 19:30: Vancomycin Level Trough 20.0H 01/23/17 06:25: White Blood Count 2.4L, Red Blood Count 2.61L, Hemoglobin 8.9L, Hematocrit 25.9L , Mean Corpuscular Volume 99, Mean Corpuscular Hemoglobin 34.2H, Mean Corpuscular Hemoglobin Concent 34.5, Red Cell Distribution Width 12.6, Platelet Count 280, Mean Platelet Volume 5.8L, Neutrophils (%) (Auto) , Lymphocytes (%) ( Auto) , Monocytes (%) (Auto) , Eosinophils (%) (Auto) , Basophils (%) (Auto) , Differential Total Cells Counted 100, Neutrophils % (Manual) 28L, Lymphocytes % (Manual) 47H, Monocytes % (Manual) 15H, Eosinophils % (Manual) 10H, Basophils % (Manual) 0, Band Neutrophils 0, Platelet Estimate Adequate, Platelet Morphology Normal, Hypochromasia 1+, Anisocytosis 1+, Microcytosis , Macrocytosis 1+, Ovalocytes 1+, Sodium Level 137, Potassium Level 3.7, Chloride Level 101, Carbon Dioxide Level 31H, Anion Gap 5, Blood Urea Nitrogen 9, Creatinine 0.4L, Estimat Glomerular Filtration Rate > 60, Glucose Level 132H, Calcium Level 8.3L Height (Feet): 6 Height (Inches): 2.00 Weight (Pounds): 126 General Appearance: no apparent distress Neck: non-tender, normal alignment Cardiovascular: normal rate, regular rhythm Respiratory/Chest: no respiratory distress Abdomen: non tender, soft, other - PEG tube noted Extremities: non-tender, normal inspection Neurologic: alert, responsive, normal mood/affect Denisse Lam N.P. Jan 23, 2017 18:17
--- NOTE | 2017-01-23 18:44 | Cardiology Report ---
APPROVED REPORT EKG Measurement Heart [id number] Normal sinus rhythm Normal ECG
[2017-01-23 20:25] VITALS: BP 106/74
[2017-01-23] MEDS: QUEtiapine 200mg tab GT SCH (20:52)
[2017-01-24 00:09] VITALS: BP 111/74
[2017-01-24 04:00] VITALS: BP 104/58
[2017-01-24] MEDS: Cefepime HCl 2 GM in D5W 110 ML IVPB SCH ×2 (05:39→17:24)
[2017-01-24 08:02] VITALS: BP 104/69
--- NOTE | 2017-01-24 08:16 | Consultation ---
DATE OF CONSULTATION: 01/21/2017 PSYCHOTHERAPY CONSULTATION PROGRESS NOTE CONSULTING PHYSICIAN: Michelle Mortensen M.D. TREATING ATTENDING PHYSICIAN: Jas Dooley D.O. History Of Present Illness: The patient is a 56-year-old male patient. The patient has a history of paranoid schizophrenia. The patient was admitted to the hospital due to confusion, altered mental status, weakness, fatigue, and failure to thrive. The patient is from [facility]. The patient states he suddenly had anxiety and agitation. . The patient denies suicidal or homicidal thoughts of ideation . Upon assessment, confused and disorganized. The patient has . Past Medical History: Includes history of weakness, encephalopathy, and failure to thrive. ALLERGIES: The patient has allergy to hydroxyzine. Substance Abuse History: There is no indication of alcohol use, illicit drug abuse, and smoking cigarettes. Social History: The patient is a 56-year-old male patient from nursing facility. Financially sustained through Medicare and [employer]. Mental Status Examination: The patient is alert and oriented x2, to person and place. Mood is depressed. Affect is blunted. Thought process is disorganized. The patient has poor attention and concentration. Poor insight, judgment, and impulse control. DIAGNOSES: AXIS I Schizoaffective disorder, bipolar type. AXIS II Deferred. AXIS III Per History and Physical. Plan: This clinician has assessed the patient. Provided the patient supportive psychotherapy, reality orientation, and coping skills. Encouraging the patient to participate in treatment milieu. Continue with medication management and behavioral management. This clinician has reviewed the patient's chart and discussed the treatment with nursing staff. Michelle Mortensen PsyD. DR: April JOB#: [id number] CC:
[2017-01-24] MEDS ORDERED: D5NS 1000ml IV ONE (09:02)
[2017-01-24] MEDS ORDERED: Tubing IV Secondary IV ONE (09:02)
[2017-01-24] MEDS: D5NS 1,000 ML IV SCH (09:34)
[2017-01-24] MEDS: Heparin 5000 units/ml inj SUBQ SCH ×2 (09:35→20:29)
[2017-01-24] MEDS: BuPROPion XL 150mg tab ORAL SCH (09:35)
[2017-01-24] MEDS: Valproic Acid 250mg/5ml Liquid GT SCH ×2 (09:36→20:27)
[2017-01-24] MEDS: DuoNeb 0.5-3(2.5)mg/3ml neb HHN PRN (10:08)
[2017-01-24 11:51] VITALS: BP 115/61
--- NOTE | 2017-01-24 14:21 | General Progress Note ---
Assessment/Plan Problem List: (1) Psychiatric disorder ICD Codes: F99 - Mental disorder, not otherwise specified SNOMED: 98712511, 154518744 (2) Dysphagia ICD Codes: R13.10 - Dysphagia, unspecified SNOMED: 09276713, 281788762 (3) Dehydration ICD Codes: E86.0 - Dehydration SNOMED: 97737620 (4) Hyponatremia ICD Codes: E87.1 - Hypo-osmolality and hyponatremia SNOMED: 64430710 (5) FTT (failure to thrive) in adult ICD Codes: R62.7 - Adult failure to thrive SNOMED: 394700772 Status: stable, progressing, tolerating diet Assessment/Plan ot pt diet psyc tx cbc bmp am dc to snf Subjective Constitutional: Reports: weakness Allergies: Coded Allergies: HYDROXYZINE (Verified Allergy, Unknown, 01/20/17) All Systems: reviewed and negative except above Subjective confused anxious Objective Last 24 Hour Vital Signs Date Time Temp Pulse Resp B/P (MAP) Pulse Ox O2 Delivery O2 Flow Rate FiO2 01/24/17 11:51 97.4 75 21 115/61 97 Room Air 01/24/17 10:17 74 18 99 Room Air 01/24/17 10:05 69 18 97 Room Air 01/24/17 08:02 97.5 69 21 104/69 97 Room Air 01/24/17 07:22 69 16 Room Air 01/24/17 04:00 98.3 88 21 104/58 92 Room Air 01/24/17 00:09 97.9 84 21 111/74 97 Room Air 01/23/17 20:30 85 16 Room Air 01/23/17 20:25 97.6 85 20 106/74 97 Room Air 01/23/17 16:00 98.3 92 21 104/79 97 Room Air 01/23/17 15:26 79 18 99 Room Air 01/23/17 15:26 85 18 99 Room Air Intake and Output 01/24/17 01/25/17 19:00 07:00 # Voids 1 Height (Feet): 6 Height (Inches): 2.00 Weight (Pounds): 126 General Appearance: lethargic EENT: normal ENT inspection Neck: normal alignment Cardiovascular: normal peripheral pulses, normal rate, regular rhythm Respiratory/Chest: chest wall non-tender, lungs clear, normal breath sounds Abdomen: normal bowel sounds, non tender, soft Extremities: normal inspection Edema: no edema noted Arm (L), no edema noted Arm (R), no edema noted Leg (L), no edema noted Leg (R), no edema noted Pedal (L), no edema noted Pedal (R), no edema noted Generalized Neurologic: motor weakness Skin: normal pigmentation, warm/dry JOE RUIZ Jan 24, 2017 14:21
--- NOTE | 2017-01-24 15:54 | Pulmonology Progress Note ---
Assessment/Plan Problems: (1) Dehydration (2) PEG (percutaneous endoscopic gastrostomy) status (3) FTT (failure to thrive) in adult (4) Dysphagia Assessment/Plan tolerating feeding check electrolytes symptomatic treatment IV fluids check electrolytes. cxr reviewed sputum cultures pending dvt prophylaxis Subjective ROS Limited/Unobtainable: No Constitutional: Reports: no symptoms HEENT: Repors: no symptoms Respiratory: Reports: no symptoms Allergies: Coded Allergies: HYDROXYZINE (Verified Allergy, Unknown, 01/20/17) Objective Last 24 Hour Vital Signs Date Time Temp Pulse Resp B/P (MAP) Pulse Ox O2 Delivery O2 Flow Rate FiO2 01/24/17 11:51 97.4 75 21 115/61 97 Room Air 01/24/17 10:17 74 18 99 Room Air 01/24/17 10:05 69 18 97 Room Air 01/24/17 08:02 97.5 69 21 104/69 97 Room Air 01/24/17 07:22 69 16 Room Air 01/24/17 04:00 98.3 88 21 104/58 92 Room Air 01/24/17 00:09 97.9 84 21 111/74 97 Room Air 01/23/17 20:30 85 16 Room Air 01/23/17 20:25 97.6 85 20 106/74 97 Room Air 01/23/17 16:00 98.3 92 21 104/79 97 Room Air Intake and Output 01/24/17 01/25/17 19:00 07:00 Intake Total 720 ml Balance 720 ml Free Water 200 ml Tube Feeding 520 ml # Voids 1 General Appearance: WD/WN HEENT: normocephalic, atraumatic Respiratory/Chest: chest wall non-tender, lungs clear Cardiovascular: normal peripheral pulses, normal rate Abdomen: normal bowel sounds, soft, non tender Genitourinary: normal external genitalia Extremities: no cyanosis Skin: no rash, no lesions Microbiology Date/Time Source Procedure Growth Status 01/21/17 20:40 Blood Blood Culture - Preliminary NO GROWTH AFTER 48 HOURS Resulted 01/21/17 20:30 Blood Blood Culture - Preliminary NO GROWTH AFTER 48 HOURS Resulted 01/21/17 16:40 Sputum Expectorated Gram Stain - Final Resulted 01/21/17 16:40 Sputum Culture - Preliminary Gram Negative Bacillus 1 Gram Negative Bacillus 2 Gram Negative Bacillus 3 Resulted Current Medications Medications (Trade) Dose Ordered Sig/Isabel Route PRN Reason Start Time Stop Time Status Last Admin Dose Admin Acetaminophen (Tylenol) 650 mg Q4H PRN GT Mild Pain/Temp > 100.5 01/21/17 03:00 02/20/17 02:59 01/22/17 21:18 Al Hydroxide/Mg Hydroxide (Mylanta II) 30 ml Q6H PRN GT dyspepsia 01/21/17 04:45 02/20/17 04:44 Albuterol/ Ipratropium (DuoNeb 0.5-3(2.5)mg/3ml) 3 ml Q4H PRN HHN Shortness of Breath 01/22/17 12:00 01/27/17 11:59 01/24/17 10:08 Bupropion HCl (Wellbutrin XL) 75 mg DAILY ORAL 01/21/17 09:00 02/20/17 08:59 01/24/17 09:35 Cefepime HCl 2 gm/ Dextrose 110 ml @ 220 mls/hr Q12HR@0600,1800 IVPB 01/21/17 18:30 01/28/17 18:29 01/24/17 05:39 Dextrose (Dextrose 50%) STAT PRN IV Hypoglycemia 01/20/17 22:45 02/19/17 22:44 Dextrose/Sodium Chloride 1,000 ml @ 50 mls/hr Q20H IV 01/20/17 23:30 02/19/17 23:29 01/24/17 09:34 Guaifenesin (Robitussin) 100 mg Q4H PRN GT For Cough 01/22/17 12:00 02/21/17 11:59 01/22/17 12:10 Heparin Sodium (Porcine) (Heparin 5000 units/ml) 5,000 units EVERY 12 HOURS SUBQ 01/21/17 09:00 02/20/17 08:59 01/24/17 09:35 Lorazepam (Ativan 2mg/ml 1ml) 1 mg Q6H PRN IV For Anxiety 01/21/17 09:15 01/28/17 09:14 01/23/17 12:30 Olanzapine (ZyPREXA) 5 mg BID GT 01/21/17 18:00 02/20/17 17:59 01/24/17 09:35 Ondansetron HCl (Zofran) 4 mg Q6H PRN IVP Nausea & Vomiting 01/20/17 22:45 02/19/17 22:44 01/21/17 11:12 Polyethylene Glycol (Miralax) 17 gm HSPRN PRN GT Constipation 01/21/17 03:00 02/20/17 02:59 Quetiapine Fumarate (SEROquel) 200 mg BEDTIME GT 01/21/17 21:00 02/20/17 20:59 01/23/17 20:52 Ranitidine HCl (Zantac) 150 mg BEDTIME GT 01/21/17 21:00 02/20/17 20:59 01/23/17 20:52 Valproic Acid (Depakene) 250 mg EVERY 12 HOURS GT 01/21/17 09:00 02/20/17 08:59 01/24/17 09:36 Vancomycin HCl (Vanco rx to dose) 1 ea DAILY PRN MISC Per rx protocol 01/21/17 17:30 02/20/17 17:29 Vancomycin HCl 1 gm/Dextrose 250 ml @ 167.007 mls/hr Q12HR@0200,1400 IVPB 01/23/17 02:00 01/28/17 01:59 01/24/17 13:35 Zolpidem Tartrate (Ambien) 5 mg HSPRN PRN GT Insomnia 01/21/17 03:00 01/28/17 02:59 RENÉ KAMINSKI Jan 24, 2017 15:54
[2017-01-24 16:30] VITALS: BP 116/64
--- NOTE | 2017-01-24 17:08 | Infectious Diseases Prog Note ---
Assessment/Plan Problems: (1) RLL pneumonia Assessment & Plan: await blood culture and sputum culture, continue cefepime and vancomycin empirically for 7 days (2) G-tube site cellulitis Assessment & Plan: already on vancomycin and cefepime, continue local care (3) Respiratory failure after trauma Assessment & Plan: S/P trach removal, stable, monitor CXR, pulmonary is following (4) Dehydration Assessment & Plan: continue IVF for hydration, monitor lytes (5) FTT (failure to thrive) in adult Assessment & Plan: screening for HIV is negative , screening for syphilis is pending, need TSH checked Subjective ROS Limited/Unobtainable: Yes Allergies: Coded Allergies: HYDROXYZINE (Verified Allergy, Unknown, 01/20/17) Objective Vital Signs Last 24 Hour Vital Signs Date Time Temp Pulse Resp B/P (MAP) Pulse Ox O2 Delivery O2 Flow Rate FiO2 01/24/17 16:30 97.5 96 20 116/64 97 Room Air 01/24/17 11:51 97.4 75 21 115/61 97 Room Air 01/24/17 10:17 74 18 99 Room Air 01/24/17 10:05 69 18 97 Room Air 01/24/17 08:02 97.5 69 21 104/69 97 Room Air 01/24/17 07:22 69 16 Room Air 01/24/17 04:00 98.3 88 21 104/58 92 Room Air 01/24/17 00:09 97.9 84 21 111/74 97 Room Air 01/23/17 20:30 85 16 Room Air 01/23/17 20:25 97.6 85 20 106/74 97 Room Air Height (Feet): 6 Height (Inches): 2.00 Weight (Pounds): 126 General Appearance: WD/WN, no acute distress HEENT: normocephalic, atraumatic, anicteric, pharynx normal, supple, no JVD Respiratory/Chest: chest wall non-tender, lungs clear, normal breath sounds, no respiratory distress Cardiovascular: normal peripheral pulses, normal rate, regular rhythm Abdomen: normal bowel sounds, soft, non tender, no organomegaly, non distended Extremities: no cyanosis, no clubbing Skin: no rash, no lesions Microbiology Date/Time Source Procedure Growth Status 01/21/17 20:40 Blood Blood Culture - Preliminary NO GROWTH AFTER 48 HOURS Resulted 01/21/17 20:30 Blood Blood Culture - Preliminary NO GROWTH AFTER 48 HOURS Resulted Current Medications Medications (Trade) Dose Ordered Sig/Isabel Route PRN Reason Start Time Stop Time Status Last Admin Dose Admin Acetaminophen (Tylenol) 650 mg Q4H PRN GT Mild Pain/Temp > 100.5 01/21/17 03:00 02/20/17 02:59 01/22/17 21:18 Al Hydroxide/Mg Hydroxide (Mylanta II) 30 ml Q6H PRN GT dyspepsia 01/21/17 04:45 02/20/17 04:44 Albuterol/ Ipratropium (DuoNeb 0.5-3(2.5)mg/3ml) 3 ml Q4H PRN HHN Shortness of Breath 01/22/17 12:00 01/27/17 11:59 01/24/17 10:08 Bupropion HCl (Wellbutrin XL) 75 mg DAILY ORAL 01/21/17 09:00 02/20/17 08:59 01/24/17 09:35 Cefepime HCl 2 gm/ Dextrose 110 ml @ 220 mls/hr Q12HR@0600,1800 IVPB 01/21/17 18:30 01/28/17 18:29 01/24/17 05:39 Dextrose (Dextrose 50%) STAT PRN IV Hypoglycemia 01/20/17 22:45 02/19/17 22:44 Dextrose/Sodium Chloride 1,000 ml @ 50 mls/hr Q20H IV 01/20/17 23:30 02/19/17 23:29 01/24/17 09:34 Guaifenesin (Robitussin) 100 mg Q4H PRN GT For Cough 01/22/17 12:00 02/21/17 11:59 01/22/17 12:10 Heparin Sodium (Porcine) (Heparin 5000 units/ml) 5,000 units EVERY 12 HOURS SUBQ 01/21/17 09:00 02/20/17 08:59 01/24/17 09:35 Lorazepam (Ativan 2mg/ml 1ml) 1 mg Q6H PRN IV For Anxiety 01/21/17 09:15 01/28/17 09:14 01/23/17 12:30 Olanzapine (ZyPREXA) 5 mg BID GT 01/21/17 18:00 02/20/17 17:59 01/24/17 09:35 Ondansetron HCl (Zofran) 4 mg Q6H PRN IVP Nausea & Vomiting 01/20/17 22:45 02/19/17 22:44 01/21/17 11:12 Polyethylene Glycol (Miralax) 17 gm HSPRN PRN GT Constipation 01/21/17 03:00 02/20/17 02:59 Quetiapine Fumarate (SEROquel) 200 mg BEDTIME GT 01/21/17 21:00 02/20/17 20:59 01/23/17 20:52 Ranitidine HCl (Zantac) 150 mg BEDTIME GT 01/21/17 21:00 02/20/17 20:59 01/23/17 20:52 Valproic Acid (Depakene) 250 mg EVERY 12 HOURS GT 01/21/17 09:00 02/20/17 08:59 01/24/17 09:36 Vancomycin HCl (Vanco rx to dose) 1 ea DAILY PRN MISC Per rx protocol 01/21/17 17:30 02/20/17 17:29 Vancomycin HCl 1 gm/Dextrose 250 ml @ 167.007 mls/hr Q12HR@0200,1400 IVPB 01/23/17 02:00 01/28/17 01:59 01/24/17 13:35 Zolpidem Tartrate (Ambien) 5 mg HSPRN PRN GT Insomnia 01/21/17 03:00 01/28/17 02:59 Sheree Barrios M.D. Jan 24, 2017 17:08
[2017-01-24 20:13] VITALS: BP 115/75
[2017-01-24] MEDS: QUEtiapine 200mg tab GT SCH (20:26)
[2017-01-24] MEDS: LORazepam Inj 2mg/ml 1ml IV PRN (21:34)
[2017-01-25 00:20] VITALS: BP 120/70
[2017-01-25] MEDS: D5NS 1,000 ML IV SCH ×2 (03:40→23:34)
[2017-01-25 04:21] VITALS: BP 128/84
[2017-01-25] MEDS: Cefepime HCl 2 GM in D5W 110 ML IVPB SCH (05:37)
[2017-01-25 06:35] LABS: MEAN CORPUSCULAR HEMOGLOBIN 33.5 PG (27.0-31.0); MEAN CORPUSCULAR HGB CONC 33.8 G/DL (32.0-36.0); MEAN CORPUSCULAR VOLUME 99 FL (80-99); MEAN PLATELET VOLUME 5.7 FL (6.5-10.1); PLATELET COUNT 299 K/UL (150-450); RED BLOOD COUNT 2.85 M/UL (4.70-6.10); RED CELL DISTRIBUTION WIDTH 12.3 % (11.6-14.8); WHITE BLOOD COUNT 2.9 K/UL (4.8-10.8)
[2017-01-25 06:51] LABS: ANION GAP 6 (5-15); CALCIUM 8.2 mg/dL (8.6-10.2); CARBON DIOXIDE 31 mEQ/L (20-30); CHLORIDE 101 mEQ/L (98-107); CREATININE 0.4 mg/dL (0.7-1.2); GLOMERULAR FILTRATION RATE > 60 mL/min (>60); HEMOLYSIS 2; SODIUM 138 mEQ/L (135-145)
[2017-01-25 08:05] VITALS: BP 100/66
[2017-01-25 09:03] LABS: BASOPHILS % (MANUAL) 1 % (0-2); EOSINOPHILS % (MANUAL) 7 % (0-3); LYMPHOCYTES % (MANUAL) 47 % (20-45); NEUTROPHILS % (MANUAL) 34 % (45-75); TOTAL CELLS COUNTED 100
[2017-01-25 09:04] LABS: BAND NEUTROPHILS % (MANUAL) 0 % (0-8); MACROCYTES 1+; PLATELET ESTIMATE ADEQUATE; PLATELET MORPHOLOGY NORMAL
[2017-01-25] MEDS: Heparin 5000 units/ml inj SUBQ SCH ×2 (09:34→20:30)
[2017-01-25] MEDS: Valproic Acid 250mg/5ml Liquid GT SCH ×2 (09:34→20:29)
[2017-01-25] MEDS: BuPROPion XL 150mg tab ORAL SCH (09:35)
[2017-01-25] MEDS: DuoNeb 0.5-3(2.5)mg/3ml neb HHN PRN (10:03)
[2017-01-25 11:26] VITALS: BP 110/66
--- NOTE | 2017-01-25 15:15 | General Progress Note ---
Assessment/Plan Problem List: (1) Psychiatric disorder ICD Codes: F99 - Mental disorder, not otherwise specified SNOMED: 05690902, 617230968 (2) Dysphagia ICD Codes: R13.10 - Dysphagia, unspecified SNOMED: 64503241, 949895679 (3) Dehydration ICD Codes: E86.0 - Dehydration SNOMED: 64452543 (4) Hyponatremia ICD Codes: E87.1 - Hypo-osmolality and hyponatremia SNOMED: 21573291 (5) FTT (failure to thrive) in adult ICD Codes: R62.7 - Adult failure to thrive SNOMED: 599978713 Status: stable, progressing, tolerating diet Assessment/Plan ot pt diet psyc tx transfer to psyc per family request Subjective Constitutional: Reports: weakness Allergies: Coded Allergies: HYDROXYZINE (Verified Allergy, Unknown, 01/20/17) All Systems: reviewed and negative except above Subjective confused anxious Objective Last 24 Hour Vital Signs Date Time Temp Pulse Resp B/P (MAP) Pulse Ox O2 Delivery O2 Flow Rate FiO2 01/25/17 11:26 98.0 81 21 110/66 100 Room Air 01/25/17 10:19 81 18 98 Room Air 01/25/17 10:08 82 20 98 Room Air 01/25/17 08:05 86 18 Room Air 01/25/17 08:05 98.2 93 20 100/66 96 Room Air 01/25/17 04:21 98.2 85 17 128/84 97 Room Air 01/25/17 00:20 97.5 90 19 120/70 98 Room Air 01/24/17 20:13 97.9 89 18 115/75 96 Room Air 01/24/17 19:10 74 16 Room Air 01/24/17 16:30 97.5 96 20 116/64 97 Room Air Intake and Output 01/25/17 01/26/17 19:00 07:00 Intake Total 0 ml Output Total 450 ml Balance -450 ml Intake Oral 0 ml Output Urine Total 450 ml Laboratory Tests 01/25/17 06:10: White Blood Count 2.9L, Red Blood Count 2.85L, Hemoglobin 9.5L, Hematocrit 28.3L , Mean Corpuscular Volume 99, Mean Corpuscular Hemoglobin 33.5H, Mean Corpuscular Hemoglobin Concent 33.8, Red Cell Distribution Width 12.3, Platelet Count 299, Mean Platelet Volume 5.7L, Neutrophils (%) (Auto) , Lymphocytes (%) ( Auto) , Monocytes (%) (Auto) , Eosinophils (%) (Auto) , Basophils (%) (Auto) , Differential Total Cells Counted 100, Neutrophils % (Manual) 34L, Lymphocytes % (Manual) 47H, Monocytes % (Manual) 11H, Eosinophils % (Manual) 7H, Basophils % ( Manual) 1, Band Neutrophils 0, Platelet Estimate Adequate, Platelet Morphology Normal, Macrocytosis 1+, Sodium Level 138, Potassium Level 4.0, Chloride Level 101, Carbon Dioxide Level 31H, Anion Gap 6, Blood Urea Nitrogen 7, Creatinine 0.4L, Estimat Glomerular Filtration Rate > 60, Glucose Level 125H, Calcium Level 8.2L Height (Feet): 6 Height (Inches): 2.00 Weight (Pounds): 126 General Appearance: lethargic EENT: normal ENT inspection Neck: normal alignment Cardiovascular: normal peripheral pulses, normal rate, regular rhythm Respiratory/Chest: chest wall non-tender, lungs clear, normal breath sounds Abdomen: normal bowel sounds, non tender, soft Extremities: normal inspection Edema: no edema noted Arm (L), no edema noted Arm (R), no edema noted Leg (L), no edema noted Leg (R), no edema noted Pedal (L), no edema noted Pedal (R), no edema noted Generalized Neurologic: motor weakness Skin: normal pigmentation, warm/dry JOE RUIZ Jan 25, 2017 15:15
--- NOTE | 2017-01-25 15:31 | Pulmonology Progress Note ---
Assessment/Plan Problems: (1) Dehydration (2) PEG (percutaneous endoscopic gastrostomy) status (3) FTT (failure to thrive) in adult (4) Dysphagia Assessment/Plan tolerating feeding check electrolytes symptomatic treatment IV fluids check electrolytes. cxr reviewed sputum showing Pseudo/ serratio/ Klebsiells dvt prophylaxis Subjective ROS Limited/Unobtainable: No Constitutional: Reports: no symptoms HEENT: Repors: no symptoms Cardiovascular: Reports: no symptoms Allergies: Coded Allergies: HYDROXYZINE (Verified Allergy, Unknown, 01/20/17) Objective Last 24 Hour Vital Signs Date Time Temp Pulse Resp B/P (MAP) Pulse Ox O2 Delivery O2 Flow Rate FiO2 01/25/17 11:26 98.0 81 21 110/66 100 Room Air 01/25/17 10:19 81 18 98 Room Air 01/25/17 10:08 82 20 98 Room Air 01/25/17 08:05 86 18 Room Air 01/25/17 08:05 98.2 93 20 100/66 96 Room Air 01/25/17 04:21 98.2 85 17 128/84 97 Room Air 01/25/17 00:20 97.5 90 19 120/70 98 Room Air 01/24/17 20:13 97.9 89 18 115/75 96 Room Air 01/24/17 19:10 74 16 Room Air 01/24/17 16:30 97.5 96 20 116/64 97 Room Air Intake and Output 01/25/17 01/26/17 19:00 07:00 Intake Total 0 ml Output Total 450 ml Balance -450 ml Intake Oral 0 ml Output Urine Total 450 ml General Appearance: WD/WN HEENT: normocephalic, atraumatic Respiratory/Chest: chest wall non-tender, lungs clear Cardiovascular: normal peripheral pulses, normal rate Abdomen: soft, non tender Extremities: no cyanosis Neurologic/Psychiatric: alert, normal mood/affect Lymphatic: no neck adenopathy Laboratory Tests 01/25/17 06:10: White Blood Count 2.9L, Red Blood Count 2.85L, Hemoglobin 9.5L, Hematocrit 28.3L , Mean Corpuscular Volume 99, Mean Corpuscular Hemoglobin 33.5H, Mean Corpuscular Hemoglobin Concent 33.8, Red Cell Distribution Width 12.3, Platelet Count 299, Mean Platelet Volume 5.7L, Neutrophils (%) (Auto) , Lymphocytes (%) ( Auto) , Monocytes (%) (Auto) , Eosinophils (%) (Auto) , Basophils (%) (Auto) , Differential Total Cells Counted 100, Neutrophils % (Manual) 34L, Lymphocytes % (Manual) 47H, Monocytes % (Manual) 11H, Eosinophils % (Manual) 7H, Basophils % ( Manual) 1, Band Neutrophils 0, Platelet Estimate Adequate, Platelet Morphology Normal, Macrocytosis 1+, Sodium Level 138, Potassium Level 4.0, Chloride Level 101, Carbon Dioxide Level 31H, Anion Gap 6, Blood Urea Nitrogen 7, Creatinine 0.4L, Estimat Glomerular Filtration Rate > 60, Glucose Level 125H, Calcium Level 8.2L Current Medications Medications (Trade) Dose Ordered Sig/Isabel Route PRN Reason Start Time Stop Time Status Last Admin Dose Admin Acetaminophen (Tylenol) 650 mg Q4H PRN GT Mild Pain/Temp > 100.5 01/21/17 03:00 02/20/17 02:59 01/22/17 21:18 Al Hydroxide/Mg Hydroxide (Mylanta II) 30 ml Q6H PRN GT dyspepsia 01/21/17 04:45 02/20/17 04:44 Albuterol/ Ipratropium (DuoNeb 0.5-3(2.5)mg/3ml) 3 ml Q4H PRN HHN Shortness of Breath 01/22/17 12:00 01/27/17 11:59 01/25/17 10:03 Bupropion HCl (Wellbutrin XL) 75 mg DAILY ORAL 01/21/17 09:00 02/20/17 08:59 01/25/17 09:35 Dextrose (Dextrose 50%) STAT PRN IV Hypoglycemia 01/20/17 22:45 02/19/17 22:44 Dextrose/Sodium Chloride 1,000 ml @ 50 mls/hr Q20H IV 01/20/17 23:30 02/19/17 23:29 01/25/17 03:40 Guaifenesin (Robitussin) 100 mg Q4H PRN GT For Cough 01/22/17 12:00 02/21/17 11:59 01/22/17 12:10 Heparin Sodium (Porcine) (Heparin 5000 units/ml) 5,000 units EVERY 12 HOURS SUBQ 01/21/17 09:00 02/20/17 08:59 01/25/17 09:34 Lorazepam (Ativan 2mg/ml 1ml) 1 mg Q6H PRN IV For Anxiety 01/21/17 09:15 01/28/17 09:14 01/24/17 21:34 Olanzapine (ZyPREXA) 5 mg BID GT 01/21/17 18:00 02/20/17 17:59 01/25/17 09:35 Ondansetron HCl (Zofran) 4 mg Q6H PRN IVP Nausea & Vomiting 01/20/17 22:45 02/19/17 22:44 01/21/17 11:12 Piperacillin Sod/ Tazobactam Sod 3.375 gm/Dextrose 110 ml @ 27.5 mls/hr Q8HR@0000,0800,1600 IVPB 01/25/17 16:00 02/01/17 15:59 Polyethylene Glycol (Miralax) 17 gm HSPRN PRN GT Constipation 01/21/17 03:00 02/20/17 02:59 Quetiapine Fumarate (SEROquel) 200 mg BEDTIME GT 01/21/17 21:00 02/20/17 20:59 01/24/17 20:26 Ranitidine HCl (Zantac) 150 mg BEDTIME GT 01/21/17 21:00 02/20/17 20:59 01/24/17 20:26 Valproic Acid (Depakene) 250 mg EVERY 12 HOURS GT 01/21/17 09:00 02/20/17 08:59 01/25/17 09:34 Vancomycin HCl (Vanco rx to dose) 1 ea DAILY PRN MISC Per rx protocol 01/21/17 17:30 02/20/17 17:29 Vancomycin HCl 1 gm/Dextrose 250 ml @ 167.007 mls/hr Q12HR@0200,1400 IVPB 01/23/17 02:00 01/28/17 01:59 01/25/17 15:12 Zolpidem Tartrate (Ambien) 5 mg HSPRN PRN GT Insomnia 01/21/17 03:00 01/28/17 02:59 RENÉ KAMINSKI Jan 25, 2017 15:31
[2017-01-25 16:15] VITALS: BP 115/65
--- NOTE | 2017-01-25 17:19 | Infectious Diseases Prog Note ---
Assessment/Plan Problems: (1) RLL pneumonia Assessment & Plan: due to pseudomonas aeruginosa, serratia marcescens , and klebsiella pneumonia ESBL , will switch cefepime to zosyn , and continue vancomycin , will treat for 14 days (2) G-tube site cellulitis Assessment & Plan: already on vancomycin and cefepime, continue local care (3) Respiratory failure after trauma Assessment & Plan: S/P trach removal, stable, monitor CXR, pulmonary is following (4) Dehydration Assessment & Plan: continue IVF for hydration, monitor lytes (5) FTT (failure to thrive) in adult Assessment & Plan: screening for HIV is negative , screening for syphilis is negative , need TSH checked Subjective Constitutional: Reports: no symptoms HEENT: Reports: no symptoms Respiratory: Reports: no symptoms Breasts: Reports: no symptoms Cardiovascular: Reports: no symptoms Gastrointestinal/Abdominal: Reports: no symptoms Genitourinary: Reports: no symptoms Neurologic: Reports: no symptoms Psychiatric: Reports: no symptoms Skin: Reports: no symptoms Endocrine: Reports: no symptoms Hematologic: Reports: no symptoms Musculoskeletal: Reports: no symptoms Allergies: Coded Allergies: HYDROXYZINE (Verified Allergy, Unknown, 01/20/17) Objective Vital Signs Last 24 Hour Vital Signs Date Time Temp Pulse Resp B/P (MAP) Pulse Ox O2 Delivery O2 Flow Rate FiO2 01/25/17 16:15 97.4 86 21 115/65 95 Room Air 01/25/17 11:26 98.0 81 21 110/66 100 Room Air 01/25/17 10:19 81 18 98 Room Air 01/25/17 10:08 82 20 98 Room Air 01/25/17 08:05 86 18 Room Air 01/25/17 08:05 98.2 93 20 100/66 96 Room Air 01/25/17 04:21 98.2 85 17 128/84 97 Room Air 01/25/17 00:20 97.5 90 19 120/70 98 Room Air 01/24/17 20:13 97.9 89 18 115/75 96 Room Air 01/24/17 19:10 74 16 Room Air Height (Feet): 6 Height (Inches): 2.00 Weight (Pounds): 126 General Appearance: WD/WN, no acute distress HEENT: normocephalic, atraumatic, anicteric, mucous membranes moist, PERRL, EOMI, pharynx normal, supple, no JVD Respiratory/Chest: chest wall non-tender, no respiratory distress, no accessory muscle use, decreased breath sounds, crackles/rales Cardiovascular: normal peripheral pulses, normal rate, regular rhythm, no gallop/murmur, no JVD Abdomen: normal bowel sounds, soft, non tender, no organomegaly, non distended , no mass, no scars Extremities: no cyanosis, no clubbing Skin: no rash, no lesions, no ulcers Neurologic/Psychiatric: alert, oriented x 3 Laboratory Tests Test 01/25/17 06:10 White Blood Count 2.9 K/UL (4.8-10.8) L Red Blood Count 2.85 M/UL (4.70-6.10) L Hemoglobin 9.5 G/DL (14.2-18.0) L Hematocrit 28.3 % (42.0-52.0) L Mean Corpuscular Volume 99 FL (80-99) Mean Corpuscular Hemoglobin 33.5 PG (27.0-31.0) H Mean Corpuscular Hemoglobin Concent 33.8 G/DL (32.0-36.0) Red Cell Distribution Width 12.3 % (11.6-14.8) Platelet Count 299 K/UL (150-450) Mean Platelet Volume 5.7 FL (6.5-10.1) L Neutrophils (%) (Auto) % (45.0-75.0) Lymphocytes (%) (Auto) % (20.0-45.0) Monocytes (%) (Auto) % (1.0-10.0) Eosinophils (%) (Auto) % (0.0-3.0) Basophils (%) (Auto) % (0.0-2.0) Differential Total Cells Counted 100 Neutrophils % (Manual) 34 % (45-75) L Lymphocytes % (Manual) 47 % (20-45) H Monocytes % (Manual) 11 % (1-10) H Eosinophils % (Manual) 7 % (0-3) H Basophils % (Manual) 1 % (0-2) Band Neutrophils 0 % (0-8) Platelet Estimate Adequate Platelet Morphology Normal Macrocytosis 1+ Sodium Level 138 mEQ/L (135-145) Potassium Level 4.0 mEQ/L (3.4-4.9) Chloride Level 101 mEQ/L (98-107) Carbon Dioxide Level 31 mEQ/L (20-30) H Anion Gap 6 (5-15) Blood Urea Nitrogen 7 mg/dL (7-23) Creatinine 0.4 mg/dL (0.7-1.2) L Estimat Glomerular Filtration Rate > 60 mL/min (>60) Glucose Level 125 mg/dL (74-106) H Calcium Level 8.2 mg/dL (8.6-10.2) L Current Medications Medications (Trade) Dose Ordered Sig/Isabel Route PRN Reason Start Time Stop Time Status Last Admin Dose Admin Acetaminophen (Tylenol) 650 mg Q4H PRN GT Mild Pain/Temp > 100.5 01/21/17 03:00 02/20/17 02:59 01/22/17 21:18 Al Hydroxide/Mg Hydroxide (Mylanta II) 30 ml Q6H PRN GT dyspepsia 01/21/17 04:45 02/20/17 04:44 Albuterol/ Ipratropium (DuoNeb 0.5-3(2.5)mg/3ml) 3 ml Q4H PRN HHN Shortness of Breath 01/22/17 12:00 01/27/17 11:59 01/25/17 10:03 Bupropion HCl (Wellbutrin XL) 75 mg DAILY ORAL 01/21/17 09:00 02/20/17 08:59 01/25/17 09:35 Dextrose (Dextrose 50%) STAT PRN IV Hypoglycemia 01/20/17 22:45 02/19/17 22:44 Dextrose/Sodium Chloride 1,000 ml @ 50 mls/hr Q20H IV 01/20/17 23:30 02/19/17 23:29 01/25/17 03:40 Guaifenesin (Robitussin) 100 mg Q4H PRN GT For Cough 01/22/17 12:00 02/21/17 11:59 01/22/17 12:10 Heparin Sodium (Porcine) (Heparin 5000 units/ml) 5,000 units EVERY 12 HOURS SUBQ 01/21/17 09:00 02/20/17 08:59 01/25/17 09:34 Lorazepam (Ativan 2mg/ml 1ml) 1 mg Q6H PRN IV For Anxiety 01/21/17 09:15 01/28/17 09:14 01/24/17 21:34 Olanzapine (ZyPREXA) 5 mg BID GT 01/21/17 18:00 02/20/17 17:59 01/25/17 09:35 Ondansetron HCl (Zofran) 4 mg Q6H PRN IVP Nausea & Vomiting 01/20/17 22:45 02/19/17 22:44 01/21/17 11:12 Piperacillin Sod/ Tazobactam Sod 3.375 gm/Dextrose 110 ml @ 27.5 mls/hr Q8HR@0000,0800,1600 IVPB 01/25/17 16:00 02/01/17 15:59 Polyethylene Glycol (Miralax) 17 gm HSPRN PRN GT Constipation 01/21/17 03:00 02/20/17 02:59 Quetiapine Fumarate (SEROquel) 200 mg BEDTIME GT 01/21/17 21:00 02/20/17 20:59 01/24/17 20:26 Ranitidine HCl (Zantac) 150 mg BEDTIME GT 01/21/17 21:00 02/20/17 20:59 01/24/17 20:26 Valproic Acid (Depakene) 250 mg EVERY 12 HOURS GT 01/21/17 09:00 02/20/17 08:59 01/25/17 09:34 Vancomycin HCl (Vanco rx to dose) 1 ea DAILY PRN MISC Per rx protocol 01/21/17 17:30 02/20/17 17:29 Vancomycin HCl 1 gm/Dextrose 250 ml @ 167.007 mls/hr Q12HR@0200,1400 IVPB 01/23/17 02:00 01/28/17 01:59 01/25/17 15:12 Zolpidem Tartrate (Ambien) 5 mg HSPRN PRN GT Insomnia 01/21/17 03:00 01/28/17 02:59 Sheree Barrios M.D. Jan 25, 2017 17:19
--- NOTE | 2017-01-25 18:09 | Nephrology Progress Note ---
Assessment/Plan Problem List: (1) FTT (failure to thrive) in adult (2) Dehydration (3) PEG (percutaneous endoscopic gastrostomy) status (4) Psychiatric disorder (5) Dysphagia (6) Hyperkalemia Assessment: Resolved (7) Hyponatremia Assessment: resolved Plan Continue abx per ID Monitor lytes and correct prn Continue g-tube feeding per GI Pain management as needed DVT prophylaxis Fall precaution AM labs Subjective Subjective Sitting by the bedside, pt is in no apparent distress. Objective Objective Last 24 Hour Vital Signs Date Time Temp Pulse Resp B/P (MAP) Pulse Ox O2 Delivery O2 Flow Rate FiO2 01/25/17 16:15 97.4 86 21 115/65 95 Room Air 01/25/17 11:26 98.0 81 21 110/66 100 Room Air 01/25/17 10:19 81 18 98 Room Air 01/25/17 10:08 82 20 98 Room Air 01/25/17 08:05 86 18 Room Air 01/25/17 08:05 98.2 93 20 100/66 96 Room Air 01/25/17 04:21 98.2 85 17 128/84 97 Room Air 01/25/17 00:20 97.5 90 19 120/70 98 Room Air 01/24/17 20:13 97.9 89 18 115/75 96 Room Air 01/24/17 19:10 74 16 Room Air Intake and Output 01/25/17 01/26/17 19:00 07:00 Intake Total 1150 ml Output Total 450 ml Balance 700 ml Intake Oral 0 ml Free Water 100 ml IV Total 400 ml Tube Feeding 650 ml Output Urine Total 450 ml Laboratory Tests 01/25/17 06:10: White Blood Count 2.9L, Red Blood Count 2.85L, Hemoglobin 9.5L, Hematocrit 28.3L , Mean Corpuscular Volume 99, Mean Corpuscular Hemoglobin 33.5H, Mean Corpuscular Hemoglobin Concent 33.8, Red Cell Distribution Width 12.3, Platelet Count 299, Mean Platelet Volume 5.7L, Neutrophils (%) (Auto) , Lymphocytes (%) ( Auto) , Monocytes (%) (Auto) , Eosinophils (%) (Auto) , Basophils (%) (Auto) , Differential Total Cells Counted 100, Neutrophils % (Manual) 34L, Lymphocytes % (Manual) 47H, Monocytes % (Manual) 11H, Eosinophils % (Manual) 7H, Basophils % ( Manual) 1, Band Neutrophils 0, Platelet Estimate Adequate, Platelet Morphology Normal, Macrocytosis 1+, Sodium Level 138, Potassium Level 4.0, Chloride Level 101, Carbon Dioxide Level 31H, Anion Gap 6, Blood Urea Nitrogen 7, Creatinine 0.4L, Estimat Glomerular Filtration Rate > 60, Glucose Level 125H, Calcium Level 8.2L Height (Feet): 6 Height (Inches): 2.00 Weight (Pounds): 126 Denisse Lam N.P. Jan 25, 2017 18:09
[2017-01-25] MEDS: Piperacillin/Tazobactam 3.375 GM in D5W 110 ML IVPB SCH ×2 (19:48→23:33)
[2017-01-25 20:00] VITALS: BP 126/82
[2017-01-25] MEDS: QUEtiapine 200mg tab GT SCH (20:29)
[2017-01-25] MEDS: LORazepam Inj 2mg/ml 1ml IV PRN (23:34)
[2017-01-25] MEDS: Acetaminophen 650mg/20.3ml GT PRN (23:35)
[2017-01-26 00:01] VITALS: BP 98/75
[2017-01-26 04:12] VITALS: BP 104/68
[2017-01-26 07:54] LABS: MEAN CORPUSCULAR HGB CONC 32.8 G/DL (32.0-36.0); MEAN CORPUSCULAR VOLUME 101 FL (80-99); PLATELET COUNT 354 K/UL (150-450); RED BLOOD COUNT 3.87 M/UL (4.70-6.10); RED CELL DISTRIBUTION WIDTH 13.2 % (11.6-14.8)
[2017-01-26 07:56] LABS: ANION GAP 11 (5-15); CALCIUM 9.4 mg/dL (8.6-10.2); CARBON DIOXIDE 30 mEQ/L (20-30); CHLORIDE 99 mEQ/L (98-107); CREATININE 0.6 mg/dL (0.7-1.2); GLOMERULAR FILTRATION RATE > 60 mL/min (>60); HEMOLYSIS 4; POTASSIUM 3.6 mEQ/L (3.4-4.9); SODIUM 140 mEQ/L (135-145)
[2017-01-26 08:00] VITALS: BP 112/72
[2017-01-26] MEDS: Piperacillin/Tazobactam 3.375 GM in D5W 110 ML IVPB SCH ×2 (08:00→17:04)
[2017-01-26] MEDS: DuoNeb 0.5-3(2.5)mg/3ml neb HHN PRN ×3 (08:19→19:48)
[2017-01-26] MEDS: Heparin 5000 units/ml inj SUBQ SCH ×2 (09:00→21:56)
[2017-01-26] MEDS ORDERED: Dyna-Hex 2% Top Sol 8oz TOPIC SCH (09:00)
[2017-01-26] MEDS ORDERED: Heparin 2000 units/Ns 1000ml INJ ONE (09:15)
[2017-01-26] MEDS ORDERED: Lidocaine 1% Plain 30 ml INJ ONE (09:15)
[2017-01-26] MEDS: BuPROPion XL 150mg tab ORAL SCH (09:53)
[2017-01-26] MEDS: Valproic Acid 250mg/5ml Liquid GT SCH ×2 (09:53→21:55)
[2017-01-26 10:07] LABS: BAND NEUTROPHILS % (MANUAL) 0 % (0-8); BASOPHILS % (MANUAL) 2 % (0-2); EOSINOPHILS % (MANUAL) 5 % (0-3); LYMPHOCYTES % (MANUAL) 25 % (20-45); NEUTROPHILS % (MANUAL) 50 % (45-75); PLATELET ESTIMATE ADEQUATE; PLATELET MORPHOLOGY NORMAL; TOTAL CELLS COUNTED 100
[2017-01-26 12:00] VITALS: BP 111/69
--- NOTE | 2017-01-26 14:31 | General Progress Note ---
Assessment/Plan Problem List: (1) Psychiatric disorder ICD Codes: F99 - Mental disorder, not otherwise specified SNOMED: 57523896, 306417982 (2) Dysphagia ICD Codes: R13.10 - Dysphagia, unspecified SNOMED: 01102950, 711134354 (3) Dehydration ICD Codes: E86.0 - Dehydration SNOMED: 32259546 (4) Hyponatremia ICD Codes: E87.1 - Hypo-osmolality and hyponatremia SNOMED: 98314729 (5) FTT (failure to thrive) in adult ICD Codes: R62.7 - Adult failure to thrive SNOMED: 692581467 Status: stable, progressing, tolerating diet Assessment/Plan ot pt diet psyc tx transfer to psyc per family request Subjective Constitutional: Reports: weakness Allergies: Coded Allergies: HYDROXYZINE (Verified Allergy, Unknown, 01/20/17) All Systems: reviewed and negative except above Subjective confused anxious Objective Last 24 Hour Vital Signs Date Time Temp Pulse Resp B/P (MAP) Pulse Ox O2 Delivery O2 Flow Rate FiO2 01/26/17 13:03 86 20 100 Room Air 01/26/17 12:53 82 20 100 Room Air 01/26/17 12:00 97.5 87 20 111/69 100 Room Air 01/26/17 08:25 86 16 100 Room Air 01/26/17 08:23 86 18 Room Air 01/26/17 08:15 86 18 99 Room Air 01/26/17 08:00 97.9 79 20 112/72 99 Room Air 01/26/17 04:12 97.2 62 19 104/68 99 Room Air 01/26/17 00:01 96.8 94 18 98/75 99 Room Air 01/25/17 20:53 82 16 Room Air 01/25/17 20:00 98.0 88 18 126/82 100 Room Air 01/25/17 16:15 97.4 86 21 115/65 95 Room Air Laboratory Tests 01/26/17 06:55: White Blood Count 3.0L, Red Blood Count 3.87L, Hemoglobin 12.8#L, Hematocrit 38.9#L, Mean Corpuscular Volume 101H, Mean Corpuscular Hemoglobin 33.0H, Mean Corpuscular Hemoglobin Concent 32.8, Red Cell Distribution Width 13.2, Platelet Count 354, Mean Platelet Volume 6.0L, Neutrophils (%) (Auto) , Lymphocytes (%) ( Auto) , Monocytes (%) (Auto) , Eosinophils (%) (Auto) , Basophils (%) (Auto) , Differential Total Cells Counted 100, Neutrophils % (Manual) 50, Lymphocytes % ( Manual) 25, Monocytes % (Manual) 18H, Eosinophils % (Manual) 5H, Basophils % ( Manual) 2, Band Neutrophils 0, Platelet Estimate Adequate, Platelet Morphology Normal, Sodium Level 140, Potassium Level 3.6, Chloride Level 99, Carbon Dioxide Level 30, Anion Gap 11, Blood Urea Nitrogen 9, Creatinine 0.6L, Estimat Glomerular Filtration Rate > 60, Glucose Level 77, Calcium Level 9.4 Height (Feet): 6 Height (Inches): 2.00 Weight (Pounds): 126 General Appearance: lethargic, confused EENT: normal ENT inspection Neck: normal alignment Cardiovascular: normal peripheral pulses, normal rate, regular rhythm Respiratory/Chest: chest wall non-tender, lungs clear, normal breath sounds Abdomen: normal bowel sounds, non tender, soft Extremities: normal inspection Edema: no edema noted Arm (L), no edema noted Arm (R), no edema noted Leg (L), no edema noted Leg (R), no edema noted Pedal (L), no edema noted Pedal (R), no edema noted Generalized Neurologic: motor weakness Skin: normal pigmentation, warm/dry JOE RUIZ Jan 26, 2017 14:31
--- NOTE | 2017-01-26 14:40 | Pulmonology Progress Note ---
Assessment/Plan Problems: (1) Dehydration (2) PEG (percutaneous endoscopic gastrostomy) status (3) FTT (failure to thrive) in adult (4) Dysphagia Assessment/Plan tolerating feeding check electrolytes symptomatic treatment IV fluids check electrolytes. sputum showing Pseudo/ serratio/ Klebsiells dvt prophylaxis \ dc planning Subjective ROS Limited/Unobtainable: No Constitutional: Reports: no symptoms Allergies: Coded Allergies: HYDROXYZINE (Verified Allergy, Unknown, 01/20/17) Objective Last 24 Hour Vital Signs Date Time Temp Pulse Resp B/P (MAP) Pulse Ox O2 Delivery O2 Flow Rate FiO2 01/26/17 13:03 86 20 100 Room Air 01/26/17 12:53 82 20 100 Room Air 01/26/17 12:00 97.5 87 20 111/69 100 Room Air 01/26/17 08:25 86 16 100 Room Air 01/26/17 08:23 86 18 Room Air 01/26/17 08:15 86 18 99 Room Air 01/26/17 08:00 97.9 79 20 112/72 99 Room Air 01/26/17 04:12 97.2 62 19 104/68 99 Room Air 01/26/17 00:01 96.8 94 18 98/75 99 Room Air 01/25/17 20:53 82 16 Room Air 01/25/17 20:00 98.0 88 18 126/82 100 Room Air 01/25/17 16:15 97.4 86 21 115/65 95 Room Air General Appearance: WD/WN HEENT: normocephalic Respiratory/Chest: chest wall non-tender, normal breath sounds Cardiovascular: normal peripheral pulses, normal rate Abdomen: normal bowel sounds, soft, non tender Genitourinary: normal external genitalia Extremities: no cyanosis Skin: no rash Neurologic/Psychiatric: emr trainer II-XII grossly normal, no motor/sensory deficits Lymphatic: no neck adenopathy Laboratory Tests 01/26/17 06:55: White Blood Count 3.0L, Red Blood Count 3.87L, Hemoglobin 12.8#L, Hematocrit 38.9#L, Mean Corpuscular Volume 101H, Mean Corpuscular Hemoglobin 33.0H, Mean Corpuscular Hemoglobin Concent 32.8, Red Cell Distribution Width 13.2, Platelet Count 354, Mean Platelet Volume 6.0L, Neutrophils (%) (Auto) , Lymphocytes (%) ( Auto) , Monocytes (%) (Auto) , Eosinophils (%) (Auto) , Basophils (%) (Auto) , Differential Total Cells Counted 100, Neutrophils % (Manual) 50, Lymphocytes % ( Manual) 25, Monocytes % (Manual) 18H, Eosinophils % (Manual) 5H, Basophils % ( Manual) 2, Band Neutrophils 0, Platelet Estimate Adequate, Platelet Morphology Normal, Sodium Level 140, Potassium Level 3.6, Chloride Level 99, Carbon Dioxide Level 30, Anion Gap 11, Blood Urea Nitrogen 9, Creatinine 0.6L, Estimat Glomerular Filtration Rate > 60, Glucose Level 77, Calcium Level 9.4 Current Medications Medications (Trade) Dose Ordered Sig/Isabel Route PRN Reason Start Time Stop Time Status Last Admin Dose Admin Acetaminophen (Tylenol) 650 mg Q4H PRN GT Mild Pain/Temp > 100.5 01/21/17 03:00 02/20/17 02:59 01/25/17 23:35 Al Hydroxide/Mg Hydroxide (Mylanta II) 30 ml Q6H PRN GT dyspepsia 01/21/17 04:45 02/20/17 04:44 Albuterol/ Ipratropium (DuoNeb 0.5-3(2.5)mg/3ml) 3 ml Q4H PRN HHN Shortness of Breath 01/22/17 12:00 01/27/17 11:59 01/26/17 12:53 Bupropion HCl (Wellbutrin XL) 75 mg DAILY ORAL 01/21/17 09:00 02/20/17 08:59 01/26/17 09:53 Chlorhexidine Gluconate (Gracie-Hex 2%) 1 applic DAILY TOPIC 01/26/17 09:00 02/25/17 08:59 Dextrose (Dextrose 50%) STAT PRN IV Hypoglycemia 01/20/17 22:45 02/19/17 22:44 Dextrose/Sodium Chloride 1,000 ml @ 50 mls/hr Q20H IV 01/20/17 23:30 02/19/17 23:29 01/25/17 23:34 Guaifenesin (Robitussin) 100 mg Q4H PRN GT For Cough 01/22/17 12:00 02/21/17 11:59 01/22/17 12:10 Heparin Sodium (Porcine) (Heparin 5000 units/ml) 5,000 units EVERY 12 HOURS SUBQ 01/21/17 09:00 02/20/17 08:59 01/25/17 20:30 Lorazepam (Ativan 2mg/ml 1ml) 1 mg Q6H PRN IV For Anxiety 01/21/17 09:15 01/28/17 09:14 01/25/17 23:34 Olanzapine (ZyPREXA) 5 mg BID GT 01/21/17 18:00 02/20/17 17:59 01/26/17 09:53 Ondansetron HCl (Zofran) 4 mg Q6H PRN IVP Nausea & Vomiting 01/20/17 22:45 02/19/17 22:44 01/21/17 11:12 Piperacillin Sod/ Tazobactam Sod 3.375 gm/Dextrose 110 ml @ 27.5 mls/hr Q8HR@0000,0800,1600 IVPB 01/25/17 16:00 02/01/17 15:59 01/25/17 23:33 Polyethylene Glycol (Miralax) 17 gm HSPRN PRN GT Constipation 01/21/17 03:00 02/20/17 02:59 Quetiapine Fumarate (SEROquel) 200 mg BEDTIME GT 01/21/17 21:00 02/20/17 20:59 01/25/17 20:29 Ranitidine HCl (Zantac) 150 mg BEDTIME GT 01/21/17 21:00 02/20/17 20:59 01/25/17 20:29 Valproic Acid (Depakene) 250 mg EVERY 12 HOURS GT 01/21/17 09:00 02/20/17 08:59 01/26/17 09:53 Vancomycin HCl (Vanco rx to dose) 1 ea DAILY PRN MISC Per rx protocol 01/21/17 17:30 02/20/17 17:29 Vancomycin HCl 1 gm/Dextrose 250 ml @ 167.007 mls/hr Q12HR@0200,1400 IVPB 01/23/17 02:00 01/28/17 01:59 01/26/17 02:30 Zolpidem Tartrate (Ambien) 5 mg HSPRN PRN GT Insomnia 01/21/17 03:00 01/28/17 02:59 ZARRABI,MIRALI Jan 26, 2017 14:40
[2017-01-26 15:30] VITALS: BP 109/74
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
[2017-01-26 20:00] VITALS: BP 134/80
[2017-01-26] MEDS ORDERED: TYLENOL650 MG/20. ORAL (21:28)
[2017-01-26] MEDS ORDERED: GUAIFENESI100 MG/5 M ORAL (21:33)
[2017-01-26] MEDS ORDERED: ZOFRAN 4 MG4 MG/2 ML IV (21:34)
[2017-01-26] MEDS ORDERED: [UNRECOGNIZED DRUG - OTHER] GT (21:40)
[2017-01-26] MEDS ORDERED: MIRALAX17 G2 GT (21:43)
[2017-01-26] MEDS: QUEtiapine 200mg tab GT SCH (21:55)
[2017-01-26] MEDS ORDERED: D5NS 1000ml IV ONE (22:44)
[2017-01-26] MEDS ORDERED: Tubing IV Secondary IV ONE (22:44)
--- NOTE | 2017-01-26 23:13 | Nephrology Progress Note ---
Assessment/Plan Problem List: (1) G-tube site cellulitis (2) RLL pneumonia (3) Hyponatremia (4) Hyperkalemia (5) Respiratory failure after trauma (6) Psychiatric disorder (7) Dysphagia Plan d/c planning. renal fxn stable. Subjective Subjective no new c/o Objective Objective Last 24 Hour Vital Signs Date Time Temp Pulse Resp B/P (MAP) Pulse Ox O2 Delivery O2 Flow Rate FiO2 01/26/17 20:00 98.0 93 18 134/80 100 Room Air 01/26/17 19:49 84 18 Room Air 01/26/17 19:49 84 18 100 Room Air 01/26/17 15:30 97.8 90 19 109/74 100 Room Air 01/26/17 13:03 86 20 100 Room Air 01/26/17 12:53 82 20 100 Room Air 01/26/17 12:00 97.5 87 20 111/69 100 Room Air 01/26/17 08:25 86 16 100 Room Air 01/26/17 08:23 86 18 Room Air 01/26/17 08:15 86 18 99 Room Air 01/26/17 08:00 97.9 79 20 112/72 99 Room Air 01/26/17 04:12 97.2 62 19 104/68 99 Room Air 01/26/17 00:01 96.8 94 18 98/75 99 Room Air Intake and Output 01/26/17 01/27/17 19:00 07:00 Intake Total 277.500 ml Output Total 250 ml Balance 27.500 ml Intake Oral 0 ml IV Total 277.500 ml Output Urine Total 250 ml Laboratory Tests 01/26/17 06:55: White Blood Count 3.0L, Red Blood Count 3.87L, Hemoglobin 12.8#L, Hematocrit 38.9#L, Mean Corpuscular Volume 101H, Mean Corpuscular Hemoglobin 33.0H, Mean Corpuscular Hemoglobin Concent 32.8, Red Cell Distribution Width 13.2, Platelet Count 354, Mean Platelet Volume 6.0L, Neutrophils (%) (Auto) , Lymphocytes (%) ( Auto) , Monocytes (%) (Auto) , Eosinophils (%) (Auto) , Basophils (%) (Auto) , Differential Total Cells Counted 100, Neutrophils % (Manual) 50, Lymphocytes % ( Manual) 25, Monocytes % (Manual) 18H, Eosinophils % (Manual) 5H, Basophils % ( Manual) 2, Band Neutrophils 0, Platelet Estimate Adequate, Platelet Morphology Normal, Sodium Level 140, Potassium Level 3.6, Chloride Level 99, Carbon Dioxide Level 30, Anion Gap 11, Blood Urea Nitrogen 9, Creatinine 0.6L, Estimat Glomerular Filtration Rate > 60, Glucose Level 77, Calcium Level 9.4 Height (Feet): 6 Height (Inches): 2.00 Weight (Pounds): 126 General Appearance: no apparent distress Cardiovascular: normal rate, regular rhythm Respiratory/Chest: lungs clear Abdomen: non tender, soft KENZIE SLOAN Jan 26, 2017 23:13
--- NOTE | 2017-01-27 08:30 | Progress Note ---
DATE: 01/25/2017 9NOTE: POOR AUDIO QUALITY PSYCHOTHERAPY CONSULTATION PROGRESS NOTE TREATING ATTENDING PHYSICIAN: Jas Dooley D.O. CONSULTING PHYSICIAN: Michelle Mortensen M.D. Subjective: The patient has been anxious and irritable; however, denies suicidal or homicidal thoughts of ideation. The patient is Mental status examination: The patient is alert and oriented x3, to person, place, and time . Mood is dysphoric. Affect is congruent. Thought process is slightly disorganized. The patient has poor attention and concentration. Poor insight, judgment, and impulse control. Plan: This clinician has assessed the patient. Provided the patient with reality orientation and supportive psychotherapy. Encouraging the patient to participate in treatment milieu. Continue with medication management and behavioral management. This clinician has reviewed the patient's chart and discussed the treatment with nursing staff. Michelle Mortensen PsyD. DR: MEGAN JOB#: [id number] CC:
--- NOTE | 2017-01-27 11:00 | Discharge Summary ---
Discharge Summary Hospital Course Date of Admission Jan 20, 2017 at 20:43 Date of Discharge Jan 26, 2017 at 22:45 Admitting Diagnosis FTT/dehydration HPI Tab Williamson is a 56 year old male who was admitted on Jan 20, 2017 at 20:43 for Failure To Thrive,Dehydration Hospital Course [id number] Discharge Discharge Disposition Patient was discharged to Psychiatric Facility ([id number]) Discharge Diagnoses: Aliya Crespo NP Jan 27, 2017 11:00
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
== END 2017-01-26 22:45 | DRG 177 ==
LOC: EDBD 19:32 → EMR 20:01 → 4E 20:43 → EDBEDREQ 21:03 → 4E 22:00
PROC: 02HV33Z Insertion of Infusion Device into Superior Vena Cava, Percutaneous Approach (ICD-10-PCS; principal; 2017-01-26)
DX: J15.1 Pneumonia due to Pseudomonas (principal); E43 Unspecified severe protein-calorie malnutrition; G93.40 Encephalopathy, unspecified; R64 Cachexia; E87.1 Hypo-osmolality and hyponatremia; K94.29 Other complications of gastrostomy; E86.0 Dehydration; L03.311 Cellulitis of abdominal wall; Z68.1 Body mass index [BMI] 19.9 or less, adult; J15.0 Pneumonia due to Klebsiella pneumoniae; J15.6 Pneumonia due to other Gram-negative bacteria; Y84.8 Other medical procedures as the cause of abnormal reaction of the patient, or of later complication, without mention of misadventure at the time of the procedure; R13.10 Dysphagia, unspecified; D64.9 Anemia, unspecified; R62.7 Adult failure to thrive; Z88.8 Allergy status to other drugs, medicaments and biological substances; E87.5 Hyperkalemia; Z87.820 Personal history of traumatic brain injury; F25.0 Schizoaffective disorder, bipolar type; Z16.12 Extended spectrum beta lactamase (ESBL) resistance
CPT/HCPCS: 36415; 36569; 71010; 76937; 80048; 80053; 80061; 80202; 82550; 82553; 83036; 84100; 84132; 84134; 84443; 85007; 85025; 86592; 86703; 87040; 87070; 87081; 87181; 87205; 93005; 94640; 94664; 97802; 99285; J2405; J7620